=== PATIENT | female | born 1950 | race Caucasian/White ===

== ENCOUNTER → 2019-12-15 09:57 | Outpatient (BNVA) | payer MEDICARE, SELFPAY | PROVIDERS: PCP Internal Medicine; Referring Provider Internal Medicine; Visit Provider Physician Assistant | DX: Z01.818 Encounter for other preprocedural examination (principal); K21.9 Gastro-esophageal reflux disease without esophagitis | CPT/HCPCS: 99212 ==

== ENCOUNTER 2020-08-31 14:03 | Outpatient (REF) | payer MEDICARE, SELFPAY ==
--- NOTE | ~2020-08-31 | MM_ITS ---
EXAMINATION: BONE DENSITOMETRY CLINICAL INDICATION: Osteopenia. COMPARISON: Baseline BD dated 12/25/2017. TECHNIQUE: Using a 4-Tell DXA System (software version: 13.1) manufactured by [employer], dual-energy x-ray absorptiometry was performed of the lumbar spine and left hip. The images are of good technical quality. Summary results are attached. FINDINGS: AP SPINE L1-L4: Current: BMD 1.027 g/cm2, Z-score -0.4, T-score -1.3, osteopenia, 6.0% increase from baseline (<5% change is not significant). Baseline: BMD 0.969 g/cm2. LEFT FEMUR, NECK: Current: BMD 0.766 g/cm2, Z-score -0.8, T-score -2.0, osteopenia. Baseline: BMD 0.821 g/cm2. LEFT FEMUR, TOTAL: Current: BMD 0.823 g/cm2, Z-score -0.6, T-score -1.5, osteopenia, 4.4% increase from baseline (<5% change is not significant). Baseline: BMD 0.788 g/cm2. IDENTIFIED RISK FACTORS: Menopause, history of fracture (adult), osteoporosis, family history (parent hip fracture), secondary osteoporosis. HISTORY OF FRACTURE: Humerus/shoulder. MEDICATIONS: None listed. MM/XR DEXA axial skeleton IMPRESSION: 1. DIAGNOSIS: Osteopenia based on the lowest T-score value of -2.0 in the femoral neck applying World Health Organization criteria. 2. 10-YEAR FRACTURE RISK PREDICTION, FRAX: Major osteoporotic fracture (clinical spine, forearm, hip or shoulder) 27.3%. Hip fracture 7.0%. 3. Treatment Recommendations: NOF guidelines recommend consideration for treatment in postmenopausal women and men age 50 and older presenting with the following: -A hip or vertebral (clinical or morphometric) fracture. -T-score less than or equal to -2.5 at the femoral neck or spine after appropriate evaluation to exclude secondary causes. -Low bone mass at the hip or spine and a 10-year fracture probability by FRAX of greater than or equal to 3% for hip fracture or greater than or equal to 20% for major osteoporotic fracture based on the [place] adapted WHO algorithm. 4. Other Recommendations: All treatment decisions require clinical judgment and consideration of individual patient factors, including patient preferences, comorbidities, previous drug use, risk factors not captured in the FRAX model (e.g. frailty, falls, vitamin D deficiency, increased bone turnover, interval significant decline in bone density) and possible under or overestimation of fracture risk by FRAX. Additional medical evaluation for secondary cause of low bone mineral density may be appropriate. FUTURE SCAN RECOMMENDATION: People with diagnosed cases of osteoporosis or at high risk for fracture should have regular bone mineral density tests. For patients eligible for Medicare, routine testing is allowed once every 2 years. The testing frequency can be increased to one year for patients who have rapidly progressing disease, those who are receiving or discontinuing medical therapy to restore bone mass, or have additional risk factors.
== END 2020-08-31 14:04 | disposition home or self-care (01) ==
LOC: HO.MAMMO 14:03
PROVIDERS: PCP Internal Medicine; Visit Provider Internal Medicine
DX: M81.0 Age-related osteoporosis without current pathological fracture (principal); M85.80 Other specified disorders of bone density and structure, unspecified site; Z78.0 Asymptomatic menopausal state
CPT/HCPCS: 77080; 99212

== ENCOUNTER 2020-10-26 08:20 | Day surgery (SDC) | payer MEDICARE, SELFPAY ==
--- NOTE | 2020-10-17 | ECG_ITS ---
Test Reason : PREOP Blood Pressure : / mmHG Vent. Rate : 074 BPM Atrial Rate : 074 BPM P-R Int : 182 ms QRS Dur : 076 ms QT Int : 404 ms P-R-T Axes : 048 -42 047 degrees QTc Int : 448 ms Normal sinus rhythm Left axis deviation Inferior infarct , age undetermined Abnormal ECG No previous ECGs available Referred By: Martha Nugent Electronically Signed By:JAMIE RIVERA
[2020-10-17 13:12] VITALS: BP 118/72; PULSE 67; RESP 20; O2SAT 96; BMI 32.4
--- NOTE | 2020-10-17 13:21 | HO.ANESPROP2 ---
Documented by User: Martha Nugent NP 10/18/20 14:02 HPI - Anesthesia Eval Consult details Narrative: 70yo F for Upper Endoscopy and Colonoscopy PMF Active Problems Active Problems: All Active Problems (Updated 10/17/20 @ 13:12 by Mercedes Figueroa RN) Overweight (BMI 25.0-29.9) (Acute) Osteopenia (Acute) Finger fracture, left (Acute) Loose stools (Acute) Psoriasis (Acute) GERD (gastroesophageal reflux disease) (Acute) Obesity (BMI 30-39.9) (Acute) Coronary artery disease (Acute) Hypercholesterolemia (Acute) Past Medical History Medical History (Updated 10/17/20 @ 13:28 by Martha Nugent NP) Carotid artery dissection Celiac disease Claustrophobia Coronary artery disease COVID-19 vaccine series completed GERD (gastroesophageal reflux disease) Hypercholesterolemia Obesity (BMI 30-39.9) Osteoporosis Psoriasis Umbilical hernia Family History Family History Father Emphysema lung Mother Emphysema lung Surgical History Surgical History H/O colonoscopy H/O esophagogastroduodenoscopy H/O lateral meniscus repair of right knee History of ankle surgery History of cataract surgery History of section History of dental problems History of shoulder surgery History of surgery Hx of hernia repair Total knee replacement status History of Problems with Anesthesia: No Social History Social History (Updated 08/31/20 @ 10:07 by Ginger Velasco PA-C) Household Members: Spouse Household Members Other:: - Housing: House Alcohol intake: never Patient Tobacco Use Status: Former Tobacco user Quit Date: 1976 Tobacco use type: Cigarette Years Smoked: 1976 stopped e-Cigarette/Vaping Use: Never Used Use of substances other than those prescribed or required for medical reasons: No Have you been hit, kicked, punched, or otherwise hurt by someone within the past year? If so, by whom?: No Are you DNR?: No Advance Directives Information Provided: Yes (as above noted) Advance Directives on File: No Recently lost weight without trying: No Nutrition Risks: No Nutritional Risk Poor oral hygiene: No (has implants, caps) service: No Current occupational status: retired Narrative Narrative: No recent illness No CP/SOB with yard work Pain psoriasis on bottom of feet limits walking Meds Allergies Allergy/AdvReac Type Severity Reaction Status Date / Time cortisone Allergy Intermediate facial Verified 10/17/20 13:08 flushing/ confusion gluten Allergy Intermediate Gastrointestinal Verified 10/17/20 13:09 Upset Home Medications Medication Instructions Recorded Confirmed Last Taken Type acetaminophen 325 mg tablet 325 mg PO QID PRN 11/26/19 10/17/20 Unknown History (Tylenol) famotidine 10 mg tablet 10 mg PO BEDTIME 11/26/19 10/17/20 Unknown History multivitamin 1 tab PO DAILY 11/26/19 10/17/20 Unknown History betamethasone, augmented 0.05 % 1 appl TOPICAL DAILY 08/31/20 10/17/20 Unknown History topical ointment dupilumab 200 mg/1.14 mL 200 mg SUBCUT Q2W 08/31/20 10/17/20 Unknown History subcutaneous pen injector (Dupixent) Exam Exam Date and Time: October 17, 2020 1321 Height,Weight and Vital Signs: Height 5 ft 6 in Weight 91.172 kg Last Vital Signs Pulse 67 10/17/20 13:12 Resp 20 10/17/20 13:12 BP 118/72 10/17/20 13:12 Pulse Ox 96 10/17/20 13:12 Narrative Narrative: EKG 10/2020 Vent. Rate : 074 BPM ? ? Atrial Rate : 074 BPM ?? P-R Int : 182 ms? QRS Dur : 076 ms ? ? QT Int : 404 ms ? ? ? P-R-T Axes : 048 -42 047 degrees ?? QTc Int : 448 ms ? Normal sinus rhythm Left axis deviation Inferior infarct , age undetermined Abnormal ECG No previous ECGs available Airway Mallampati Class: II TM Dist: >3cm Neck ROM: Full Loose/Missing/Broken Teeth: No (Veneers throughout, crowned molars) Heart: RRR Lungs: CTAB Assessment and Plan Assessment Anesthesia Assessment: Anesthesia Plan Discussed and PAT Visit Final Anesthetic Review History of Problems with Anesthesia: No Documented by User: Samantha Ellis MD 10/26/20 08:12 [facility] Past Medical History Medical History (Updated 10/17/20 @ 13:28 by Martha Nugent NP) Carotid artery dissection Celiac disease Claustrophobia Coronary artery disease COVID-19 vaccine series completed GERD (gastroesophageal reflux disease) Hypercholesterolemia Obesity (BMI 30-39.9) Osteoporosis Psoriasis Umbilical hernia Functional capacity: independent ambulation Patient : No Family History Family History Father Emphysema lung Mother Emphysema lung Surgical History Surgical History H/O colonoscopy H/O esophagogastroduodenoscopy H/O lateral meniscus repair of right knee History of ankle surgery History of cataract surgery History of section History of dental problems History of shoulder surgery History of surgery Hx of hernia repair Total knee replacement status Social History Social History (Updated 08/31/20 @ 10:07 by Ginger Velasco PA-C) Household Members: Spouse Household Members Other:: - Housing: House Alcohol intake: never Patient Tobacco Use Status: Former Tobacco user Quit Date: 1976 Tobacco use type: Cigarette Years Smoked: 1976 stopped e-Cigarette/Vaping Use: Never Used Use of substances other than those prescribed or required for medical reasons: No Have you been hit, kicked, punched, or otherwise hurt by someone within the past year? If so, by whom?: No Are you DNR?: No Advance Directives Information Provided: Yes (as above noted) Advance Directives on File: No Recently lost weight without trying: No Nutrition Risks: No Nutritional Risk Poor oral hygiene: No (has implants, caps) service: No Current occupational status: retired Meds Allergies Allergy/AdvReac Type Severity Reaction Status Date / Time cortisone Allergy Intermediate facial Verified 10/17/20 13:08 flushing/ confusion gluten Allergy Intermediate Gastrointestinal Verified 10/17/20 13:09 Upset Home Medications Medication Instructions Recorded Confirmed Last Taken Type acetaminophen 325 mg tablet 325 mg PO QID PRN 11/26/19 10/17/20 Unknown History (Tylenol) famotidine 10 mg tablet 10 mg PO BEDTIME 11/26/19 10/17/20 Unknown History multivitamin 1 tab PO DAILY 11/26/19 10/17/20 Unknown History betamethasone, augmented 0.05 % 1 appl TOPICAL DAILY 08/31/20 10/17/20 Unknown History topical ointment dupilumab 200 mg/1.14 mL 200 mg SUBCUT Q2W 08/31/20 10/17/20 Unknown History subcutaneous pen injector (Numerex)
[2020-10-26 08:22] VITALS: BP 139/80; PULSE 87; RESP 16; TEMP 36.8; O2SAT 96
[2020-10-26] MEDS: Lactated Ringers 1,000 ML 100 ML IVCONT (08:52)
--- NOTE | 2020-10-26 09:08 | MHC.SHP ---
Pre-Procedural Eval Section A Date of Service: 10/26/20 Section B Chief Complaint: celiac,reflux Details of Present Illness: colon screening Relevant Family History (Specify if Yes): No Relevant Social History: None Present Medications: see Short Stay Collaborative assessment Medical History: Significant History (Carotid artery dissection Celiac disease Claustrophobia Coronary artery disease COVID-19 vaccine series completed GERD (gastroesophageal reflux disease) Hypercholesterolemia Obesity (BMI 30-39.9) Osteoporosis Psoriasis Umbilical hernia) History of Previous Operations: Relevant previous surgery/procedure and date(s) (H/O colonoscopy H/O esophagogastroduodenoscopy H/O lateral meniscus repair of right knee History of ankle surgery History of cataract surgery History of section History of dental problems History of shoulder surgery History of surgery Hx of hernia repair Total knee replacement status) Allergies: Allergies Allergy/AdvReac Type Severity Reaction Status Date / Time cortisone Allergy Intermediate facial Verified 10/17/20 13:08 flushing/ confusion gluten Allergy Intermediate Gastrointestinal Verified 10/17/20 13:09 Upset Review of Systems Sugical H&P ROS: Negative: Constitution, Cardiovascular, Respiratory, Neurological, Psychiatric, Hem-Onc, Allergic/Immunologic, Gastrointestinal, Genitourinary, Musculoskeletal, Integumentary, Endocrine and Eyes/Ears/Nose/Throat Exam Surgical H&P Exam: Normal: HEENT, Normal: Heart, Normal: Lungs, Normal: Extremities, Normal: Abdomen, Normal: Skin and Normal: Neurological Plan Diagnosis/Plan: Unchanged I have reviewed the history and physical and performed a pertinent physical examination on my patient. No changes have occurred unless specified.
--- NOTE | 2020-10-26 09:09 | PM.OP ---
Brief Operative Note Date of Service: 10/26/20 Pre-op diagnosis: GERD and colon screening Post-op diagnosis: same Procedure: see op note Surgeon: Justin Jaimes MD Anesthesia: MAC Was an Materials Scheduler used for this Procedure?: No Estimated blood loss (mL): 0 Condition: stable Disposition: PACU
--- NOTE | 2020-10-26 09:09 | W.PM.OPN ---
Operative Note Operative Note Date of Service: 10/26/20 Narrative: Operative Information Procedure Description: EGD, Colonoscopy FLEXIBLE TRANSORAL UPPER GASTROINTESTINAL ENDOSCOPY AND COLONOSCOPY PROCEDURE NOTE UPPER ENDOSCOPY Consent: Indications for the procedure and potential complications of bleeding, perforation, reaction to medications and missed diagnosis were discussed with the patient and informed consent was obtained. Instrument: Olympus GIF H 190 J mid size upper endoscope Monitoring: Vital signs and clinical assessment, continuous EKG monitoring, Pulse oximetry, Carbon Dioxide monitoring and blood pressure monitoring were done throughout the procedure. Procedure: The patient was placed in the left lateral decubitis position and pre-procedure medications were administered and a bite block was placed. The endoscope was inserted into the mouth and advanced under direct vision to the third part of duodenum. A careful inspection was made as the upper endoscope was withdrawn including a retroflexed examination of the proximal stomach; Findings and interventions are described below. Findings: Larynx:normal Esophagus: GE junction at 34 cm, diaphragm hiatus at 37 cm, consistent with 2-3 cm sliding hiatal hernia, mild esophagitis at GEJ bx taken from GEJ and random esophagus. In hernial sac one erosion noted. Stomach: Streaky erythema elidia at antrum. Biopsies were obtained. Grade 2 flap valve on retroflexed examination of the cardia. Duodenum: Normal bulb and descending duodenum, bx taken Intervention: Biopsies as noted above COLONOSCOPY Instrument: Olympus variable stiffness pediatric scope 190L Colonoscopy Monitoring: Vital signs and clinical assessment, continuous EKG monitoring, Pulse oximetry, Carbon Dioxide monitoring and blood pressure monitoring were done throughout the procedure. Colon withdrawal time was 10 minutes. Procedure: The patient was placed in the left lateral decubitis position and pre-procedure medications were administered. After a digital rectal examination of the ano-rectum, the video colonoscope was inserted into the rectum and advanced through the colon to the cecum/TI. The colonoscope was slowly withdrawn in a retrograde panoramic fashion and the colon mucosa was carefully examined including a retroflexed view of the rectum. Findings and interventions are described below. Procedure Difficulty:easy Findings: Terminal Ileum-normal Cecum:normal Ascending Colon: normal Transverse Colon -normal Descending Colon:10 mm sessile polyp removed with cold snare Sigmoid Colon: normal Rectum: Retroflexion with moderate sized internal hemorrhoids, grade I Anorectum - normal Colon preparation: [place] Bowel Preparation Scale Right colon; 3 Transverse colon: 3 Left colon; 3 (0 = Unprepared colon segment with mucosa not seen due to solid stool that cannot be cleared. 1 = Portion of mucosa of the colon segment seen, but other areas of the colon segment not well seen due to staining, residual stool and/or opaque liquid. 2 = Minor amount of residual staining, small fragments of stool and/or opaque liquid, but mucosa of colon segment seen well. 3 = Entire mucosa of colon segment seen well with no residual staining, small fragments of stool or opaque liquid) Impression and Post Procedure Diagnosis: Endoscopy Findings: hiatal hernia denis erosion esophagitis gastritis Colonoscopy Findings: polyp internal hemorrhoids Plan: Await Pathology results Repeat Colonoscopy in 5-7 years if adenomatous or 10 yr if hyperplastic or earlier if clinically indicated High fiber diet leaflet avoid straining at stool, epsom salts and sitz bath, anusol supps or cream Reflux precautions would benefit from PPI-will discuss with her Above findings were reviewed with the patient and relevant handouts were provided if indicated.
[2020-10-26 10:03] VITALS: BP 108/65; PULSE 69; RESP 16; TEMP 36.6; O2SAT 96
[2020-10-26 10:18] VITALS: BP 119/71; PULSE 66; RESP 16; TEMP 36.6; O2SAT 97
--- NOTE | 2020-10-26 16:50 | HO.POSTANES ---
Post Anesthesia Evaluation Post Anesthesia Evaluation Vital Signs: Vital Signs Temp Pulse Resp BP Pulse Ox 10/26/20 10:18 97.9 F 66 16 119/71 97 10/26/20 10:03 97.9 F 69 16 108/65 96 10/26/20 08:22 98.2 F 87 16 139/80 96 Anesthesia: Monitored Mental Status: Awake Pain Control: Satisfactory Nausea/Vomiting: None Hydration: Adequate Anesthesia-Related Issues: No Anes. Related Issues
== END 2020-10-26 11:01 ==
LOC: HO.SSS 08:20
PROVIDERS: PCP Internal Medicine; Visit Provider Internal Medicine Gastroenterology
PROC: (CPT 45385; principal; 2020-10-26 09:20)
DX: Z12.11 Encounter for screening for malignant neoplasm of colon (principal); D12.4 Benign neoplasm of descending colon; K64.0 First degree hemorrhoids; K90.0 Celiac disease; K29.50 Unspecified chronic gastritis without bleeding; K21.00 Gastro-esophageal reflux disease with esophagitis, without bleeding; R19.7 Diarrhea, unspecified; K25.9 Gastric ulcer, unspecified as acute or chronic, without hemorrhage or perforation; K44.9 Diaphragmatic hernia without obstruction or gangrene; M81.0 Age-related osteoporosis without current pathological fracture; I25.10 Atherosclerotic heart disease of native coronary artery without angina pectoris; I25.2 Old myocardial infarction; F40.240 Claustrophobia; Z79.899 Other long term (current) drug therapy; Z88.8 Allergy status to other drugs, medicaments and biological substances; Z87.891 Personal history of nicotine dependence
CPT/HCPCS: 45385; 43239; 88305; 88342; 93005

== ENCOUNTER 2020-10-30 08:52 | Outpatient (REF) | payer MEDICARE, SELFPAY ==
[2020-10-30 10:08] LABS: MANUAL DIFF FLAG NO
[2020-10-30 10:14] LABS: Basophils Percent Auto 0.9 % (0-2); Eosinophils Absolute Auto 0.2 X10*3/uL (0.0-0.4); Eosinophils Percent Auto 3.2 % (0-4); Hematocrit 42.4 % (37-47); Hemoglobin 13.8 g/dl (12.0-16.0); Imm Gran Abs Auto 0.01 X10*3/uL (0.00-0.03); Imm Gran Pct Auto 0.2 % (0.0-0.4); Lymphocytes Absolute Auto 1.7 X10*3/uL (1.2-4.9); Lymphocytes Percent Auto 36.8 % (20-40); Mean Corpuscular HGB Conc 32.5 g/dl (31.0-35.0); Mean Corpuscular Hemoglobin 28.5 pg (27.0-33.0); Mean Corpuscular Volume 87.4 fL (80-98); Mean Platelet Volume 11.4 fL (9.4-12.3); Monocytes Absolute Auto 0.3 X10*3/uL (0.1-1.2); Neutrophils Absolute Auto 2.5 X10*3/uL (2.0-8.3); Neutrophils Percent Auto 52.9 % (45-73); Platelet Count 199 X10*3/uL (160-400); Red Blood Count 4.85 X10*6/uL (4.20-5.50); Red Cell Distribution Width 13.7 % (11.0-16.0); White Blood Count 4.7 X10*3/uL (4.8-10.8)
[2020-10-30 10:17] LABS: Appearance Urine CLEAR; Color Urine YELLOW; Glucose Urine UA NEG (NEG); Leukocyte Esterase Urine NEG (NEG); Nitrite Urine NEG (NEG); PH 6.5 (5.0-8.0); Urine Blood NEG (NEG); Urine Ketones NEG (NEG); Urine Protein NEG (NEG-TRACE)
[2020-10-30 10:37] LABS: Alanine Aminotransferase 16 U/L (0-31); Alkaline Phosphatase 82 U/L (39-117); Anion Gap 12 (12-20); Aspartate Amino Transferase 14 U/L (5-31); Bilirubin Total 0.2 mg/dL (0.0-1.0); Blood Urea Nitrogen 10 mg/dL (9-16); Calcium 9.1 mg/dL (8.4-10.2); Carbon Dioxide 25 mmol/L (22-29); Chloride 109 mmol/L (96-108); Cholesterol 248 mg/dL; Estimated Glomerular Filt Rate > 60; Glucose Random 92 mg/dL (60-115); HDL Cholesterol 43 mg/dL; LDL Cholesterol Calculated 170 mg/dl; Potassium 4.7 mmol/L (3.3-5.1); Sodium 141 mmol/L (135-145); Total Protein 6.3 g/dL (6.5-8.0); Triglycerides 175 mg/dL
[2020-10-30 10:56] LABS: Bacteria Urine 1+ /LPF; RBC Urine 0 /HPF (0); Squamous Epithelial Cell Urine 2+ /LPF; WBC Urine 0-2 /HPF (0-4)
[2020-10-30 11:15] LABS: Erythrocyte Sedimentation Rate 7 MM/HR (0-20)
[2020-10-30 11:22] LABS: Thyroid Stimulating Hormone 1.23 uIU/mL (0.32-4.0)
[2020-10-30 11:46] LABS: Folate 13.9 ng/mL (> or = 4.0); Vitamin B12 720 pg/mL (200-900)
[2020-11-03 13:10] LABS: Vitamin D 25-OH, D2 <4 ng/mL; Vitamin D 25-OH, D3 29 ng/mL; Vitamin D 25-OH, Total 29 ng/mL (30-100)
[2020-11-04 10:47] LABS: Endomysial IgA Antibody Negative (Negative)
[2020-11-06 09:12] LABS: Transglutaminase IgA <1.0 U/mL
== END 2020-10-30 08:53 | disposition home or self-care (01) ==
LOC: HO.LAB 08:52
PROVIDERS: Absent Provider Physician Assistant; PCP Internal Medicine; Visit Provider Internal Medicine
DX: I25.10 Atherosclerotic heart disease of native coronary artery without angina pectoris (principal); R10.11 Right upper quadrant pain; R19.7 Diarrhea, unspecified; R19.5 Other fecal abnormalities; E78.00 Pure hypercholesterolemia, unspecified
CPT/HCPCS: 36415; 80053; 80061; 81001; 82306; 82607; 82746; 83516; 84443; 85025; 85652; 86255; 86256

== ENCOUNTER → 2020-12-11 09:14 | Outpatient (BNVA) | payer MEDICARE, SELFPAY | PROVIDERS: PCP Internal Medicine; Visit Provider Dietitian, Registered | DX: K90.0 Celiac disease (principal) | CPT/HCPCS: 97802 ==

== ENCOUNTER 2020-12-14 10:29 | Outpatient (REF) | payer MEDICARE, SELFPAY ==
--- NOTE | ~2020-12-14 | US_ITS ---
EXAMINATION: US EXTRACRANIAL CAROTID DUPLEX, BILATERAL CLINICAL INFORMATION: This is a 70-year-old female with coronary artery disease. Carotid artery dissection in 2010 which resolved. COMPARISON: None TECHNIQUE: Real-time ultrasound and Doppler techniques (integrating B-mode 2-D vascular images, Doppler spectral analysis and color-flow Doppler imaging) were utilized to interrogate the extracranial carotid arteries, the vertebral arteries and proximal subclavian arteries bilaterally. The degree of stenosis is determined by criteria similar to NASCET. FINDINGS: Right Side: 1. There is minimal atherosclerotic plaque seen in the bifurcation/proximal ICA region. 2. The common carotid artery PSV proximally is 106 cm/s and distally 53 cm/s. 3. The proximal internal carotid artery velocities are 45 cm/s systolic and 15 cm/s diastolic. 4. The proximal external carotid artery PSV is 76 cm/s. 5. The vertebral artery shows antegrade flow. 6. The subclavian artery waveforms are normal. Left Side: 1. There is minimal atherosclerotic plaque seen in the bifurcation/proximal ICA region. 2. The common carotid artery PSV proximally is 87 cm/s and distally 70 cm/s. 3. The proximal internal carotid artery velocities are 74 cm/s systolic and 16 cm/s diastolic. 4. The proximal external carotid artery PSV is 72 cm/s. 5. The vertebral artery shows antegrade flow. 6. The subclavian artery waveforms are normal. US/US carotid duplex BI IMPRESSION: 1. RIGHT: Minimal, non-hemodynamically significant stenosis of the proximal right internal carotid artery corresponding to a 0-49% stenosis by velocity criteria. 2. LEFT: Minimal, non-hemodynamically significant stenosis of the proximal left internal carotid artery corresponding to a 0-49% stenosis by velocity criteria. 3. An arrhythmia was noted during the Doppler portion of the examination. Further evaluation with EKG would be a better study at this time. 4. There are multiple nodules within the thyroid gland. This would be best evaluated with a dedicated thyroid ultrasound.
== END 2020-12-14 10:30 | disposition home or self-care (01) ==
LOC: HO.HMGCX 10:29
PROVIDERS: PCP Internal Medicine; Visit Provider Internal Medicine
DX: I77.71 Dissection of carotid artery (principal)
CPT/HCPCS: 93880

== ENCOUNTER 2020-12-18 | Outpatient (REF) | payer MEDICARE, SELFPAY ==
[2020-12-19 13:12] LABS: Influenza A PCR NEGATIVE (Negative); Influenza B PCR NEGATIVE (Negative); Resp Syncy Virus RNA Qual PCR NEGATIVE (Negative); SARS COV2 PCR INHOUSE NEGATIVE (Negative)
== END 2020-12-18 00:01 | disposition home or self-care (01) ==
LOC: HO.LNP
PROVIDERS: Visit Provider Physician Assistant Medical
DX: J06.9 Acute upper respiratory infection, unspecified (principal); R05.9 Cough, unspecified; Z20.822 Contact with and (suspected) exposure to COVID-19
CPT/HCPCS: 0241U

== ENCOUNTER 2020-12-18 15:31 | Outpatient (REF) | payer MEDICARE, SELFPAY ==
--- NOTE | ~2020-12-18 | XR_ITS ---
EXAMINATION: XR CHEST CLINICAL INFORMATION: Cough COMPARISON: Chest x-ray 10/07/2017 TECHNIQUE: 2 views of the chest were obtained. FINDINGS: Cardiac silhouette is normal in size. The lungs are adequately aerated. There is no lobar consolidation. No pleural effusion or pneumothorax. Mild degenerative changes of the spine. Partially visualized right shoulder prosthesis. XR/XR chest 2V IMPRESSION: No acute pulmonary pathology.
== END 2020-12-18 15:32 | disposition home or self-care (01) ==
LOC: HO.HMGCX 15:31
PROVIDERS: PCP Internal Medicine; Visit Provider Physician Assistant Medical
DX: R05.9 Cough, unspecified (principal); Z20.822 Contact with and (suspected) exposure to COVID-19
CPT/HCPCS: 0241U; 71046

== ENCOUNTER 2021-01-09 13:48 | Outpatient (REF) | payer MEDICARE, SELFPAY ==
--- NOTE | ~2021-01-09 | XR_ITS ---
EXAMINATION: XR LUMBAR SPINE XR SACRUM/COCCYX CLINICAL INFORMATION: Fall. COMPARISON: None TECHNIQUE: Lumbar spine 3 views. Sacrum and coccyx 3 views. FINDINGS: SACRUM/COCCYX: There is normal symmetry of SI joints. There is no fracture, dislocation, lytic or sclerotic process involving the sacrum. The presacral and posterior sacral soft tissues are normal. LUMBAR SPINE: There is normal lumbar lordosis. The vertebral heights, alignment and disc heights are normal. No visible acute fracture, dislocation or subluxation seen. XR/XR lumbar spine 2-3V IMPRESSION: Unremarkable sacrum and/or coccyx. Unremarkable lumbar spine exam.
--- NOTE | ~2021-01-09 | XR_ITS ---
EXAMINATION: XR LUMBAR SPINE XR SACRUM/COCCYX CLINICAL INFORMATION: Fall. COMPARISON: None TECHNIQUE: Lumbar spine 3 views. Sacrum and coccyx 3 views. FINDINGS: SACRUM/COCCYX: There is normal symmetry of SI joints. There is no fracture, dislocation, lytic or sclerotic process involving the sacrum. The presacral and posterior sacral soft tissues are normal. LUMBAR SPINE: There is normal lumbar lordosis. The vertebral heights, alignment and disc heights are normal. No visible acute fracture, dislocation or subluxation seen. XR/XR sacrum coccyx min 2V IMPRESSION: Unremarkable sacrum and/or coccyx. Unremarkable lumbar spine exam.
== END 2021-01-09 13:49 | disposition home or self-care (01) ==
LOC: HO.XRAY 13:48
PROVIDERS: PCP Internal Medicine; Visit Provider Internal Medicine
DX: M54.50 Low back pain, unspecified (principal); W19.XXXA Unspecified fall, initial encounter
CPT/HCPCS: 72100; 72220

== ENCOUNTER 2021-02-23 13:04 | Outpatient (REF) | payer MEDICARE, SELFPAY ==
--- NOTE | ~2021-02-23 | US_ITS ---
EXAMINATION: US THYROID CLINICAL INFORMATION: Nontoxic single thyroid nodule. COMPARISON: None TECHNIQUE: Linear transducer grayscale and color Doppler examination with attention to the region of the thyroid. FINDINGS: SIZE: Measurements of the thyroid lobes and nodules are given in sagittal, anteroposterior and transverse dimensions respectively. Right Thyroid Lobe: 4.6 x 2.0 x 1.2 cm, volume 6.0 mL. Parenchyma: The gland echotexture is heterogeneous. Thyroid vascularity is normal. Left Thyroid Lobe: 4.5 x 1.6 x 1.3 cm, volume 4.8 mL. Parenchyma: The gland echotexture is homogeneous. Thyroid vascularity is normal. Isthmus: 0.32 cm in maximum AP dimension. Estimated total number of nodules greater than or equal to 1 cm: 2. 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 Location: Right superior. Size: 1.3 x 1.0 x 0.7 cm, volume 0.46 mL. Nodule characteristics: Composition: Solid (2). Echogenicity: Hypoechoic (2). Shape: Not taller than wide (0). Margins: Smooth (0). Echogenic Foci: None (0). ACR TI-RADS total points: 4 ACR TI-RADS category: 4 2. Location: Right mid. Size: 1.2 x 0.9 x 0.6 cm, volume 0.35 mL. Nodule characteristics: Composition: Solid (2). Echogenicity: Hypoechoic (2). Shape: Not taller than wide (0). Margins: Smooth (0). Echogenic Foci: None (0). ACR TI-RADS total points: 4 ACR TI-RADS category: 4 3. Location: Right inferior. Size: 0.6 x 0.4 x 0.3 cm, volume 0.045 mL. Nodule characteristics: Composition: Solid (2). Echogenicity: Hypoechoic (2). Shape: Not taller than wide (0). Margins: Smooth (0). Echogenic Foci: None (0). ACR TI-RADS total points: 4 ACR TI-RADS category: 4 4. Location: Left mid. Size: 0.72 x 0.62 x 0.54 cm, volume 0.13 mL. Nodule characteristics: Composition: Solid/almost completely solid (2). Echogenicity: Hypoechoic (2). Shape: Not taller than wide (0). Margins: Smooth (0). Echogenic Foci: None (0). ACR TI-RADS total points: 4 ACR TI-RADS category: 4 5. Location: Left mid. Size: 0.6 x 0.5 x 0.5 cm, volume 0.08 mL. Nodule characteristics: Composition: Mixed cystic and solid (1). Echogenicity: Hypoechoic (2). Shape: Not taller than wide (0). Margins: Smooth (0). Echogenic Foci: None (0). ACR TI-RADS total points: 3 ACR TI-RADS category: 3 NODES: No lymphadenopathy is seen in the tissue surrounding the thyroid gland. US/US thyroid IMPRESSION: Heterogeneous thyroid gland with multiple thyroid nodules. According to TI RADS criteria, no ultrasound follow-up or fine-needle aspiration recommended. ACR TI-RADS RECOMMENDATION REFERENCE: Ultrasound-guided fine-needle aspiration, followup ultrasound, no further follow up. * TR1 (0 point) and TR 2 (2 points): No FNA or follow up * TR3 (3 points): FNA if more than or equal to 2.5 cm in maximum dimension, followup ultrasound in 1, 3 and 5 years if 1.5 to 2.4 cm in maximum dimension. * TR4 (4-6 points): FNA if more than or equal to 1.5 cm in maximum dimension, followup ultrasound in 1, 2, 3 and 5 years if 1 to 1.4 cm in maximum dimension. * TR5 (more than or equal to 7 points): FNA if more than or equal to 1 cm in maximum dimension, followup ultrasound every year for 5 years if 0.5 to 0.9 cm in maximum dimension. * TR3, TR4 or TR5 nodules that are below the size threshold for follow up receive no follow up.
== END 2021-02-23 13:05 | disposition home or self-care (01) ==
LOC: HO.HMGCX 13:04
PROVIDERS: PCP Internal Medicine; Visit Provider Internal Medicine
DX: E04.1 Nontoxic single thyroid nodule (principal)
CPT/HCPCS: 76536

== ENCOUNTER → 2021-03-26 08:08 | Outpatient (BNVA) | payer MEDICARE, SELFPAY | PROVIDERS: PCP Internal Medicine; Referring Provider Internal Medicine; Visit Provider Physician Assistant | DX: K90.0 Celiac disease (principal); K21.9 Gastro-esophageal reflux disease without esophagitis | CPT/HCPCS: 99212 ==

== ENCOUNTER → 2021-04-19 09:10 | Outpatient (BNVA) | payer MEDICARE, SELFPAY | PROVIDERS: PCP Internal Medicine; Visit Provider Dietitian, Registered | DX: K90.0 Celiac disease (principal); Z71.3 Dietary counseling and surveillance | CPT/HCPCS: 97803 ==

== ENCOUNTER 2021-05-10 10:16 | Outpatient (REF) | payer MEDICARE, SELFPAY ==
--- NOTE | 2021-05-10 10:49 | ECG_ITS ---
Test Reason : I25.10 ASCD Blood Pressure : / mmHG Vent. Rate : 063 BPM Atrial Rate : 063 BPM P-R Int : 170 ms QRS Dur : 080 ms QT Int : 440 ms P-R-T Axes : 044 -36 046 degrees QTc Int : 450 ms Normal sinus rhythm Left axis deviation Cannot rule out Inferior infarct (cited on or before 17-OCT-2020) Abnormal ECG When compared with ECG of 17-OCT-2020 13:53, No significant change was found Referred By: Ambreen Foster Electronically Signed By:ADELA WHITMORE
[2021-05-10 11:01] LABS: MANUAL DIFF FLAG NO
[2021-05-10 12:14] LABS: Basophils Percent Auto 0.7 % (0-2); Eosinophils Absolute Auto 0.2 X10*3/uL (0.0-0.4); Eosinophils Percent Auto 3.6 % (0-4); Hematocrit 42.8 % (37.0-47.0); Hemoglobin 13.7 g/dl (12.0-16.0); Imm Gran Abs Auto 0.01 X10*3/uL (0.00-0.03); Imm Gran Pct Auto 0.2 % (0.0-0.4); Lymphocytes Absolute Auto 1.9 X10*3/uL (1.2-4.9); Lymphocytes Percent Auto 34.8 % (20-40); Mean Corpuscular Volume 87.5 fL (80.0-98.0); Mean Platelet Volume 11.5 fL (9.4-12.3); Monocytes Absolute Auto 0.4 X10*3/uL (0.1-1.2); Monocytes Percent Auto 6.9 % (2-11); Neutrophils Percent Auto 53.8 % (45-73); Platelet Count 210 X10*3/uL (160-400); Red Blood Count 4.89 X10*6/uL (4.20-5.50); Red Cell Distribution Width 13.2 % (11.0-16.0); White Blood Count 5.5 X10*3/uL (4.8-10.8)
[2021-05-10 12:57] LABS: Alanine Aminotransferase 20 U/L (0-31); Alkaline Phosphatase 86 U/L (39-117); Anion Gap 9 (12-20); Aspartate Amino Transferase 17 U/L (5-31); Bilirubin Total 0.3 mg/dL (0.0-1.0); Blood Urea Nitrogen 12 mg/dL (9-16); Calcium 9.3 mg/dL (8.4-10.2); Carbon Dioxide 27 mmol/L (22-29); Chloride 109 mmol/L (96-108); Cholesterol 172 mg/dL; Estimated Glomerular Filt Rate > 60; Glucose Random 86 mg/dL (60-115); HDL Cholesterol 44 mg/dL; LDL Cholesterol Calculated 107 mg/dl; Potassium 4.6 mmol/L (3.3-5.1); Sodium 140 mmol/L (135-145); Total Protein 6.5 g/dL (6.5-8.0); Triglycerides 105 mg/dL
== END 2021-05-10 10:17 | disposition home or self-care (01) ==
LOC: HO.LAB 10:16
PROVIDERS: PCP Internal Medicine; Visit Provider Internal Medicine
DX: I25.10 Atherosclerotic heart disease of native coronary artery without angina pectoris (principal); E78.00 Pure hypercholesterolemia, unspecified
CPT/HCPCS: 36415; 80053; 80061; 85025; 93005

== ENCOUNTER 2021-07-02 08:07 | Outpatient (REF) | payer MEDICARE, SELFPAY ==
--- NOTE | ~2021-07-02 | FL_ITS ---
PROCEDURE: XR GI SERIES CLINICAL INFORMATION: Dysphagia. COMPARISON: None TECHNIQUE: Routine upper GI single contrast exam was performed. Double contrast upper GI exam was not performed as patient is unable to rotate on the table due to right shoulder prosthesis. FINDINGS: Following oral administration of thick barium and effervescent granules there is normal propagation if bolus from the oral cavity through the pharynx, esophagus into stomach without any evidence of obstruction and narrowing. On placing patient supine and prone the course, caliber and peristalsis of stomach and the duodenal bulb is normal. There is mild gastroesophageal reflux without hiatal hernia. FLUOROSCOPY TIME: 1.4 minutes DOSE AREA PRODUCT: 23.364 uGy-m2 (microgray-meter squared) FL/FL upper GI series IMPRESSION: Mild gastroesophageal reflux otherwise unremarkable upper GI single contrast study.
== END 2021-07-02 08:08 | disposition home or self-care (01) ==
LOC: HO.XRAY 08:07
PROVIDERS: Visit Provider Internal Medicine
DX: R13.10 Dysphagia, unspecified (principal)
CPT/HCPCS: 74240

== ENCOUNTER 2021-07-26 17:01 | Outpatient (REF) | payer MEDICARE, SELFPAY ==
--- NOTE | ~2021-07-26 | XR_ITS ---
EXAMINATION: XR RIBS, RIGHT CLINICAL INFORMATION: Pleurodynia COMPARISON: Chest x-ray 12/18/2020 TECHNIQUE: PA chest, 3 views of the right ribs were obtained. FINDINGS: Chest x-ray: Streaky bibasilar opacities, likely subsegmental atelectasis or scarring. No airspace consolidation. No pleural effusion or pneumothorax. Unchanged cardiomediastinal silhouette with tortuous descending thoracic aorta. No cardiomegaly or evidence pulmonary edema. Reverse right total shoulder arthroplasty noted. Right RIBS: Mild angular contour deformities of the right sixth and possibly fifth ribs compatible with prior healed fractures. No acute displaced fracture identified. XR/XR ribs RT min 3V w CXR1V IMPRESSION: 1. Mild bibasilar subsegmental atelectasis or scarring. No acute pulmonary process. 2. No acute displaced rib fracture identified.
== END 2021-07-26 17:02 | disposition home or self-care (01) ==
LOC: HO.HMGCX 17:01
PROVIDERS: PCP Internal Medicine
DX: R07.81 Pleurodynia (principal)
CPT/HCPCS: 71101

== ENCOUNTER 2021-08-31 10:46 | Outpatient (REF) | payer MEDICARE, SELFPAY ==
[2021-08-31 11:24] LABS: Alanine Aminotransferase 24 U/L (0-31); Albumin Level 4.3 g/dL (3.5-5.0); Alkaline Phosphatase 100 U/L (39-117); Anion Gap 12 (12-20); Aspartate Amino Transferase 22 U/L (5-31); Bilirubin Total 0.5 mg/dL (0.0-1.0); Blood Urea Nitrogen 12 mg/dL (9-16); Calcium 9.6 mg/dL (8.4-10.2); Carbon Dioxide 24 mmol/L (22-29); Chloride 106 mmol/L (96-108); Cholesterol 175 mg/dL; Estimated Glomerular Filt Rate > 60; Glucose Random 98 mg/dL (60-115); HDL Cholesterol 46 mg/dL; LDL Cholesterol Calculated 109 mg/dl; Potassium 4.4 mmol/L (3.3-5.1); Sodium 138 mmol/L (135-145); Total Protein 6.9 g/dL (6.5-8.0); Triglycerides 104 mg/dL
== END 2021-08-31 10:47 | disposition home or self-care (01) ==
LOC: HO.LAB 10:46
PROVIDERS: PCP Internal Medicine; Visit Provider Internal Medicine
DX: E78.00 Pure hypercholesterolemia, unspecified (principal); I25.10 Atherosclerotic heart disease of native coronary artery without angina pectoris
CPT/HCPCS: 36415; 80053; 80061

== ENCOUNTER 2022-03-27 11:17 | Outpatient (REF) | payer MEDICARE, SELFPAY ==
[2022-03-27 12:33] LABS: Alanine Aminotransferase 21 U/L (0-31); Albumin Level 4.2 g/dL (3.5-5.0); Alkaline Phosphatase 85 U/L (39-117); Anion Gap 12 (12-20); Aspartate Amino Transferase 19 U/L (5-31); Bilirubin Total 0.6 mg/dL (0.0-1.0); Blood Urea Nitrogen 12 mg/dL (9-16); Calcium 9.5 mg/dL (8.4-10.2); Carbon Dioxide 27 mmol/L (22-29); Chloride 108 mmol/L (96-108); Cholesterol 175 mg/dL; Estimated Glomerular Filt Rate > 60; Glucose Random 93 mg/dL (60-115); HDL Cholesterol 51 mg/dL; LDL Cholesterol Calculated 105 mg/dl; Potassium 4.7 mmol/L (3.3-5.1); Sodium 142 mmol/L (135-145); Total Protein 6.6 g/dL (6.5-8.0); Triglycerides 96 mg/dL
== END 2022-03-27 11:18 | disposition home or self-care (01) ==
LOC: HO.LAB 11:17
PROVIDERS: PCP Internal Medicine; Visit Provider Internal Medicine
DX: E78.00 Pure hypercholesterolemia, unspecified (principal)
CPT/HCPCS: 36415; 80053; 80061

== ENCOUNTER 2022-04-10 10:04 | Outpatient (REF) | payer MEDICARE, SELFPAY ==
--- NOTE | ~2022-04-10 | US_ITS ---
EXAMINATION: US THYROID CLINICAL INFORMATION: Localized swelling, mass and lump, neck. COMPARISON: Thyroid ultrasound 02/23/2021. TECHNIQUE: Linear transducer grayscale and color Doppler examination with attention to the region of the thyroid. FINDINGS: SIZE: Measurements of the thyroid lobes and nodules are given in sagittal, anteroposterior and transverse dimensions respectively. Right Thyroid Lobe: 4.9 x 2.2 x 1.1 cm, volume 6.1 mL. Previously 4.6 x 2.0 x 1.2 cm, volume 6.0 mL. Parenchyma: The gland echotexture is heterogeneous. Thyroid vascularity is normal. Left Thyroid Lobe: 4.6 x 1.9 x 1.3 cm, volume 5.9 mL. Previously 4.5 x 1.6 x 1.3 cm, volume 4.8 mL. Parenchyma: The gland echotexture is heterogeneous. Thyroid vascularity is normal. Isthmus: 0.3 cm in maximum AP dimension. Previously 0.3 cm. Estimated total number of nodules greater than or equal to 1 cm: 1. Composition Tile Layer nodules are described as follows: 1. Location: Right upper pole. Size: 1.1 x 0.8 x 1.1 cm, volume 0.47 mL. Previously: 1.3 x 1.0 x 0.7 cm, volume 0.46 mL. Nodule characteristics: Composition: Solid/almost completely solid (2). Echogenicity: Hypoechoic (2). Shape: Not taller than wide (0). Margins: Smooth (0). Echogenic Foci: Punctate echogenic foci (3). ACR TI-RADS total points: 7 Previous: 4 ACR TI-RADS category: 5 Previous: 4 Significant change in size (>/= 20% in 2 dimensions and minimal increase of 2 mm or 50% or greater increase in volume): None. Change in features: None. Change in ACR TI-RADS risk category: Increased. 2. Location: Right lower pole. Size: 0.9 x 0.7 x 0.8 cm, volume 0.29 mL. Previously: 1.2 x 0.9 x 0.6 cm, volume 0.35 mL. Nodule characteristics: Composition: Solid/almost completely solid (2). Echogenicity: Hypoechoic (2). Shape: Not taller than wide (0). Margins: Smooth (0). Echogenic Foci: Punctate echogenic foci (3). ACR TI-RADS total points: 7 Previous: 4 ACR TI-RADS category: 5 Previous: 4 Significant change in size (>/= 20% in 2 dimensions and minimal increase of 2 mm or 50% or greater increase in volume): None. Change in features: None. Change in ACR TI-RADS risk category: Slightly increased. 3. Location: Left mid pole. Size: 0.4 x 0.4 x 0.6 cm, volume 0.05 mL. Previously: 0.5 x 0.4 x 0.6 cm, volume 0.05 mL. Nodule characteristics: Composition: Spongiform (0). ACR TI-RADS total points: 0 ACR TI-RADS category: 1 4. Location: Left mid pole. Size: 0.7 x 0.6 x 0.6 cm, volume 0.14 mL. Previously: 0.7 x 0.6 x 0.5 cm, volume 0.13 mL. Nodule characteristics: Composition: Mixed cystic and solid (1). Echogenicity: Very hypoechoic (3). Shape: Taller than wide (3). Margins: Irregular (2). Echogenic Foci: None (0). None. ACR TI-RADS total points: 9 Previous: 4 ACR TI-RADS category: 5 Previous: 4 Significant change in size (>/= 20% in 2 dimensions and minimal increase of 2 mm or 50% or greater increase in volume): None. Change in features: None. Change in ACR TI-RADS risk category: Slightly increased. 5. Location: Left lower pole. Size: 0.6 x 0.6 x 0.5 cm, volume 0.10 mL. Previously: 0.6 x 0.5 x 0.5 cm, volume 0.08 mL. Nodule characteristics: Composition: Spongiform (0). ACR TI-RADS total points: 0 Previous: 3 ACR TI-RADS category: 1 Previous: 3 Significant change in size (>/= 20% in 2 dimensions and minimal increase of 2 mm or 50% or greater increase in volume): None. Change in features: None. Change in ACR TI-RADS risk category: Improved. NODES: No lymphadenopathy is seen in the tissue surrounding the thyroid gland. US/US thyroid IMPRESSION: Multiple bilateral thyroid nodules. The largest nodule measures 1.1 cm. At least 2 nodules have slightly increased total points and TI-RADS category but minimal. Recommend continued annual followup.
== END 2022-04-10 10:05 | disposition home or self-care (01) ==
LOC: HO.HMGCX 10:04
PROVIDERS: Visit Provider Internal Medicine
DX: R22.1 Localized swelling, mass and lump, neck (principal)
CPT/HCPCS: 76536

== ENCOUNTER 2022-09-16 09:31 | Outpatient (REF) | payer MEDICARE, SELFPAY ==
[2022-09-16 11:00] LABS: Alanine Aminotransferase 25 U/L (0-31); Alkaline Phosphatase 81 U/L (39-117); Anion Gap 14 (12-20); Aspartate Amino Transferase 21 U/L (5-31); Bilirubin Total 0.4 mg/dL (0.0-1.0); Blood Urea Nitrogen 11 mg/dL (9-16); Calcium 9.3 mg/dL (8.4-10.2); Carbon Dioxide 21 mmol/L (22-29); Chloride 109 mmol/L (96-108); Cholesterol 246 mg/dL; Estimated Glomerular Filt Rate > 60; Glucose Random 92 mg/dL (60-115); HDL Cholesterol 47 mg/dL; LDL Cholesterol Calculated 176 mg/dl; Potassium 4.3 mmol/L (3.3-5.1); Sodium 140 mmol/L (135-145); Total Protein 6.8 g/dL (6.5-8.0); Triglycerides 117 mg/dL
== END 2022-09-16 09:32 | disposition home or self-care (01) ==
LOC: HO.LAB 09:31
PROVIDERS: PCP Internal Medicine; Visit Provider Internal Medicine
DX: R22.1 Localized swelling, mass and lump, neck (principal); E78.00 Pure hypercholesterolemia, unspecified
CPT/HCPCS: 36415; 80053; 80061

== ENCOUNTER 2022-09-19 15:18 | Outpatient (AMB) | payer MEDICARE, SELFPAY ==
[2022-09-19 15:32] VITALS: BP 144/82; PULSE 86; O2SAT 97; BMI 34.4
--- NOTE | 2022-09-19 15:32 | A.OFFPC_ITS ---
Vital Signs 09/19/22 15:32 Height 5 ft 6 in Weight 213 lb BMI 34.4 BP 144/82 H Blood Pressure Location Lt brachial Position Sitting Pulse 86 Pulse Source Pulse Oximeter Pulse Oximetry (%) 97 Oxygen Delivery Method Room Air Intake Visit Reasons: Neck masshypercholesterolemia shoulder pain Allergies cortisone Allergy (Intermediate, Verified 09/19/22 15:33) facial flushing/ confusion gluten Allergy (Intermediate, Verified 09/19/22 15:33) Gastrointestinal Upset atorvastatin Adverse Reaction (Intermediate, Verified 09/19/22 15:33) muscle ache rosuvastatin Adverse Reaction (Intermediate, Unverified 09/19/22 16:11) myalgia Medication List - Last Reconciled 09/19/22 by Ambreen Foster MD acetaminophen (Tylenol) 325 mg PO QID PRN aspirin 81 mg PO DAILY 90 days betamethasone, augmented 0.05 % 1 appl topical DAILY cholecalciferol (vitamin D3) 25 mcg PO DAILY dupilumab (Dupixent) 200 mg subcut Q2W multivitamin 1 tab PO DAILY pantoprazole 40 mg PO DAILY rosuvastatin 5 mg PO DAILY Tobacco use date assessed: 04/01/22 Fall risk assessment: No Falls in past year Last assessed Fall Risk: 09/19/22 Dental Screening Dental Screen Date: 09/19/22 Did you have a dental visit in the last 12 months?: Yes Did you have a dental problem in the last 6 months where you did not have access to dental care?: No Was dental information given to patient?: Patient has dentist HPI Neck masshypercholesterolemia shoulder pain HPI Details 72-year-old obese female with GERD coronary artery disease hypercholesterolemia last seen in March 2022 neck mass ultrasound done and blood work was requested patient is here for follow-up. Mammogram is due bone density is due colonoscopy is up-to-date. Review of the notes in February 2022 had MRI of the left shoulder showing findings suggestive of small near full- thickness tear of the supraspinatus tendon without significant retraction, mild degenerative changes of the acromioclavicular and glenohumeral joints. Ultrasound of thyroid reveals multiple bilateral thyroid nodule with largest 1.1 cm at least 2 nodules have slightly increased. Advised annual follow-up. This was done in April 2019. L shoulder pain, wrist brace cannot use, - seen 2nd opinion- L shoulder- asking for referral , - R arm weak reasons L arm cannot be incapacitated. patient is presently in a study for balance issues.- with choelsterol med - had leg weakness- stopped cholesterol med- [facility] Medical History (Updated 09/19/22 @ 16:30 by Ambreen Foster MD) Breast cancer screening by mammogram Carotid artery dissection Celiac disease Claustrophobia Coronary artery disease COVID-19 vaccine series completed GERD (gastroesophageal reflux disease) Hypercholesterolemia Obesity (BMI 30-39.9) Osteoporosis Overweight (BMI 25.0-29.9) Psoriasis Umbilical hernia Surgical History H/O colonoscopy H/O esophagogastroduodenoscopy H/O lateral meniscus repair of right knee History of ankle surgery History of cataract surgery History of section History of dental problems History of shoulder surgery History of surgery Hx of hernia repair Total knee replacement status Family History (Updated 09/19/22 @ 15:33 by Violeta Min [facility]) Father Emphysema lung Mother Emphysema lung Social History Household Members: Spouse Household Members Other:: - Housing: House Alcohol intake: never Patient Tobacco Use Status: Former Tobacco user Quit Date: 1976 Tobacco use type: Cigarette Years Smoked: 1976 stopped e-Cigarette/Vaping Use: Never Used Second Hand Smoke Exposure: No service: No Current occupational status: retired Cognitive needs: No Hearing needs: No Vision needs: Yes (reading glasses) Questionnaire PHQ-9 Over the last 2 weeks, how often have you been bothered by any of the following problems? 1. Little interest or pleasure in doing things: not at all 2. Feeling down, depressed, or hopeless: not at all 3. Trouble falling or staying asleep, or sleeping too much: not at all 4. Feeling tired or having little energy: not at all 5. Poor appetite or overeating: not at all 6. Feeling bad about yourself - or that you are a failure or have let yourself or your family down: not at all 7. Trouble concentrating on things, such as reading the newspaper or watching television: not at all 8. Moving or speaking so slowly that other people could have noticed. Or the opposite - being so fidgety or restless that you have been moving around a lot more than usual: not at all 9. Thoughts that you would be better off or of hurting yourself in some way: not at all Total score: 0 Depression Screening Interpretation: Negative Source: Developed by Drs. Clayton Conde, Kat Grossman, Sanjay Grant and colleagues, with an educational raysa from [employer]. Thrive Questionnaire Date Thrive assessed: 04/01/22 AUDIT C Alcohol Use Questionnaire (AUDIT-C) 1. How often do you have a drink containing alcohol?: Monthly or less 2. How many drinks containing alcohol do you have on a typical day when you are drinking?: 1 or 2 3. How often do you have six or more drinks on one occasion?: Never Total Score: 1 FABIAN-7 AMB Questionnaire FABIAN-7 Date FABIAN - 7 assessed: 04/01/22 Source: Developed by Drs. Clayton Conde, Kat Grossman, Sanjay Grant and colleagues, with an educational raysa from [employer]. Physical exam (Primary Care) Vital Signs: Last Vital Signs Pulse 86 09/19/22 15:32 BP 144/82 H 09/19/22 15:32 Pulse Ox 97 09/19/22 15:32 Oxygen Delivery Method Room Air 09/19/22 15:32 BMI result Body Mass Index 34.4 Tobacco/Smoking Status: Tobacco use Status Tobacco use date assessed 04/01/22 09/19/22 15:34 Patient Tobacco Use Status Former Tobacco user 09/19/22 15:34 Tobacco use type Cigarette 09/19/22 15:34 e-Cigarette/Vaping Use Never Used 09/19/22 15:34 PHQ-9: PHQ-9 Score PHQ-9: Total score 0 09/19/22 15:39 Depression Screening Interpretation: Negative Thrive Assessment: Date of Thrive Assessment Date Thrive assessed 04/01/22 09/19/22 15:34 Const General: alert; No acute distress Eyes Conjunctivae: conjunctivae normal Resp Auscultation: clear to auscultation bilaterally Cardio Rate: regular rate Rhythm: regular rhythm GI Inspection: Yes normal to inspection Extrem General: Yes normal to inspection and No edema Assessment and Plan Assessment & Plan (1) Thyroid nodule: Comment: February Code(s): E04.1 - Nontoxic single thyroid nodule Plan: Ultrasound has been done and has been advised yearly follow-up family history of thyroid cancer will refer to Endocrinology (2) GERD (gastroesophageal reflux disease): Comment: Pantoprazole 40 mg daily may try to reduce dose in the future if symptoms are completely resolved. Reinforced importance of continuing medication and consistency to avoid breakthrough Avoid culprits-EGD Code(s): K21.9 - Gastro-esophageal reflux disease without esophagitis Qualifiers: Esophagitis presence: without esophagitis Qualified Code(s): K21.9 - Gastro-esophageal reflux disease without esophagitis Plan: Avoid the foods that causes that usually spicy foods, tomato products, juices, coffee, soda and foods that your sensitive to. After eating do not lie down, allow 3-4 hours before in lie down. And keep the head of bed above 30 degrees to avoid the acid from going up. (3) Obesity (BMI 30-39.9): Code(s): E66.9 - Obesity, unspecified Plan: Diet and exercise (4) Coronary artery disease: Comment: [place] 2000 - follows w PCP Dr. Foster Code(s): I25.10 - Atherosclerotic heart disease of [place] coronary artery without angina pectoris Qualifiers: Coronary Disease-Associated Artery/Lesion type: [place] artery [place] vs. transplanted heart: [place] heart Associated angina: without angina Qualified Code(s): I25.10 - Atherosclerotic heart disease of [place] coronary artery without angina pectoris Plan: Control the cholesterol, weight, blood pressure (5) Hypercholesterolemia: Code(s): E78.00 - Pure hypercholesterolemia, unspecified Plan: Avoid fried foods, chicken skin, eggs, butter margarine, pastries and meat. Be it pork or beef they have a lot of cholesterol LDL goal of less than 70 and the last blood work showing more than 176. Patient is not on any cholesterol med ication had a compromised with the patient to take rosuvastatin 5 mg once a day (6) Left shoulder pain: Comment: February 2022L shoulder MR 02/25/2022 Dr. Dash small near full-thickness tear of supraspinatus tendon without significant retraction mild degenerative changes of the acromioclavicular and glenohumeral joints Code(s): M25.512 - Pain in left shoulder Plan: Advised to get physical therapy done (7) Osteopenia: Code(s): M85.80 - Other specified disorders of bone density and structure, unspecified site Plan: Bone density requested (8) Breast cancer screening by mammogram: Code(s): Z12.31 - Encounter for screening mammogram for malignant neoplasm of breast Plan: Mammogram requested (9) Blood pressure elevated without history of HTN: Code(s): R03.0 - Elevated blood-pressure reading, without diagnosis of hypertension Plan: Blood pressure monitor requested and advised to check blood pressure 2 times a week and record Orders: Orders MM tomosynthesis screening BI Today Z12.31 - Encounter for screening mammogram for malignant neoplasm of breast XR DEXA axial skeleton Today M81.0 - Age-related osteoporosis without current pathological fracture, M85.80 - Other specified disorders of bone density and structure, unspecified site PT Evaluation and Treatment Today M25.512 - Pain in left shoulder Referrals Endocrinology Referral E04.1 - Nontoxic single thyroid nodule Medications: New rosuvastatin 5 mg PO DAILY 90 tabs 2RF E78.00 - Pure hypercholesterolemia, unspecified turmeric 400 mg PO .QD 30 caps 0RF E78.00 - Pure hypercholesterolemia, unspecified omega 0-vea-xgm-fish oil 100-160-1,000 mg (Fish Oil) 1 cap PO .QD 20 caps 0RF E78.00 - Pure hypercholesterolemia, unspecified blood pressure monitor (Blood Pressure Kit) As directed 1 ea 0RF I10 - Essential (primary) hypertension, R03.0 - Elevated blood-pressure reading, without diagnosis of hypertension Coding Level of Care Code Est Pt Level 4 (31524) Diagnoses Thyroid nodule E04.1 GERD (gastroesophageal reflux disease) K21.9 Esophagitis presence: without esophagitis Obesity (BMI 30-39.9) E66.9 Coronary artery disease I25.10 Coronary Disease-Associated Artery/Lesion type: [place] artery [place] vs. transplanted heart: [place] heart Associated angina: without angina Hypercholesterolemia E78.00 Left shoulder pain M25.512 Osteopenia M85.80 Breast cancer screening by mammogram Z12.31 Blood pressure elevated without history of HTN R03.0
== END 2022-09-19 16:36 | disposition home or self-care (01) ==
PROVIDERS: Visit Provider Internal Medicine
DX: E04.1 Nontoxic single thyroid nodule (principal); K21.9 Gastro-esophageal reflux disease without esophagitis; E66.9 Obesity, unspecified; Z68.34 Body mass index [BMI] 34.0-34.9, adult; I25.10 Atherosclerotic heart disease of native coronary artery without angina pectoris; E78.00 Pure hypercholesterolemia, unspecified; M25.512 Pain in left shoulder; M85.80 Other specified disorders of bone density and structure, unspecified site; Z12.31 Encounter for screening mammogram for malignant neoplasm of breast; R03.0 Elevated blood-pressure reading, without diagnosis of hypertension
CPT/HCPCS: 99214

== ENCOUNTER 2022-11-29 10:54 | Outpatient (AMB) | payer MEDICARE, SELFPAY ==
--- NOTE | 2022-11-29 12:38 | MHC.OFFWIV ---
Intake Vital Signs 11/29/22 12:39 Height 5 ft 6 in Weight 209 lb BMI 33.7 BP 122/80 Blood Pressure Location Lt brachial Position Sitting Pulse 80 Pulse Source Pulse Oximeter Temp 98.2 F Temp Source Temporal Artery Scan Pulse Oximetry (%) 95 Oxygen Delivery Method Room Air Intake Visit Reasons: EP Cough, Fever, Chills [phone] Intake Note: pt is here for c/o cough, chills Patient Tobacco Use Status: Former Tobacco user Quit Date: 1976 Allergies cortisone Allergy (Intermediate, Verified 11/29/22 13:05) facial flushing/ confusion gluten Allergy (Intermediate, Verified 11/29/22 13:05) Gastrointestinal Upset atorvastatin Adverse Reaction (Intermediate, Verified 11/29/22 13:05) muscle ache rosuvastatin Adverse Reaction (Intermediate, Unverified 11/29/22 13:05) myalgia Medication List - Last Reconciled 11/29/22 by Olu Lowery MD acetaminophen (Tylenol) 325 mg PO QID PRN aspirin 81 mg PO DAILY 90 days betamethasone, augmented 0.05 % 1 appl topical DAILY blood pressure monitor (Blood Pressure Kit) As directed cholecalciferol (vitamin D3) 25 mcg PO DAILY dupilumab (Dupixent) 200 mg subcut Q2W multivitamin 1 tab PO DAILY omega 2-mba-ege-fish oil 100-160-1,000 mg (Fish Oil) 1 cap PO .QD pantoprazole 40 mg PO DAILY rosuvastatin 5 mg PO DAILY turmeric 400 mg PO .QD Do you need a note to return to daycare/school/sports/work: No HPI EP Cough, Fever, Chills [phone] HPI Details 72-year-old female presents to the office for a sick visit. Patient is reporting symptoms of chills and rigors, sore throat. No family members sick. No recent travel. COUNTS INCLUDE 234 BEDS AT THE [facility] Medical History Breast cancer screening by mammogram Carotid artery dissection COVID-19 vaccine series completed Umbilical hernia GERD (gastroesophageal reflux disease) Overweight (BMI 25.0-29.9) Psoriasis Claustrophobia Osteoporosis Celiac disease Obesity (BMI 30-39.9) Coronary artery disease Hypercholesterolemia Surgical History Hx of hernia repair H/O esophagogastroduodenoscopy H/O colonoscopy History of dental problems History of cataract surgery History of section History of shoulder surgery H/O lateral meniscus repair of right knee Total knee replacement status History of surgery History of ankle surgery Family History Father Emphysema lung Mother Emphysema lung Social History Household Members: Spouse Household Members Other:: - Housing: House Alcohol intake: never Patient Tobacco Use Status: Former Tobacco user Quit Date: 1976 Tobacco use type: Cigarette Years Smoked: 1976 stopped e-Cigarette/Vaping Use: Never Used Second Hand Smoke Exposure: No service: No Current occupational status: retired Cognitive needs: No Hearing needs: No Vision needs: Yes (reading glasses) Physical Exam Vital Signs: Last Vital Signs Temp 98.2 F 11/29/22 12:39 Pulse 80 11/29/22 12:39 BP 122/80 11/29/22 12:39 Pulse Ox 95 11/29/22 12:39 Oxygen Delivery Method Room Air 11/29/22 12:39 BMI result Body Mass Index 33.7 Const General: cooperative and healthy appearing Nutritional Appearance: well nourished Orientation/consciousness: patient oriented x3 Limitations: no limitations HEENT Head: Yes normal to inspection Eyes General: appearance normal, both eyes and all related structures Neck Neck: Yes normal visual inspection Chest Chest palpation & inspection: normal palpation of entire chest wall Resp Effort & Inspection: normal respiratory effort Neuro General: patient oriented x3 Assessment & Plan Assessment & Plan (1) Upper respiratory tract infection: Code(s): J06.9 - Acute upper respiratory infection, unspecified Plan: Antibiotics ordered. Increase fluid intake. Tylenol for aches and pains. If symptoms worsen, follow-up here for a recheck. Coding Level of Care Code Est Pt Level 3 (36435) Diagnoses Upper respiratory tract infection J06.9
[2022-11-29 12:39] VITALS: BP 122/80; PULSE 80; TEMP 36.8; O2SAT 95; BMI 33.7
== END 2022-11-29 13:21 | disposition home or self-care (01) ==
PROVIDERS: PCP Internal Medicine; Visit Provider Internal Medicine
DX: J06.9 Acute upper respiratory infection, unspecified (principal)
CPT/HCPCS: 99213

== ENCOUNTER 2022-11-29 12:58 | Outpatient (REF) | payer MEDICARE, SELFPAY ==
[2022-11-29 17:27] LABS: Influenza A PCR NEGATIVE (Negative); Influenza B PCR NEGATIVE (Negative); Resp Syncy Virus RNA Qual PCR NEGATIVE (Negative); SARS COV2 PCR INHOUSE NEGATIVE (Negative)
== END 2022-11-29 12:59 | disposition home or self-care (01) ==
LOC: HO.LAB 12:58
PROVIDERS: Visit Provider Internal Medicine
DX: Z11.52 Encounter for screening for COVID-19 (principal); Z20.822 Contact with and (suspected) exposure to COVID-19; R05.9 Cough, unspecified
CPT/HCPCS: 0241U

== ENCOUNTER 2023-03-17 13:53 | Outpatient (AMB) | payer MEDICARE, SELFPAY ==
[2023-03-17 13:58] VITALS: BP 136/70; PULSE 85; O2SAT 97; BMI 33.9
--- NOTE | 2023-03-17 13:58 | A.OFFPC_ITS ---
Vital Signs 03/17/23 13:58 Height 5 ft 6 in Weight 210 lb BMI 33.9 BP 136/70 Blood Pressure Location Lt brachial Position Sitting Pulse 85 Pulse Source Pulse Oximeter Pulse Oximetry (%) 97 Oxygen Delivery Method Room Air Intake Visit Reasons: blood pressure Allergies cortisone Allergy (Intermediate, Verified 03/17/23 13:59) facial flushing/ confusion gluten Allergy (Intermediate, Verified 03/17/23 13:59) Gastrointestinal Upset atorvastatin Adverse Reaction (Intermediate, Verified 03/17/23 13:59) muscle ache rosuvastatin Adverse Reaction (Intermediate, Verified 03/17/23 13:59) myalgia Tobacco use date assessed: 03/17/23 Fall risk assessment: No Falls in past year Last assessed Fall Risk: 03/17/23 Dental Screening Dental Screen Date: 03/17/23 Did you have a dental visit in the last 12 months?: Yes Did you have a dental problem in the last 6 months where you did not have access to dental care?: No Was dental information given to patient?: Patient has dentist HPI blood pressure HPI Details 72-year-old obese female with a history of coronary artery disease hypercholesterolemia GERD coming in for follow-up. Last seen in September 2022. Concern about thyroid nodule and was advised to follow-up with endocrinology patient also had an elevated blood pressure at that time. As far as colonoscopy up-to-date October 2020 having tubular adenoma mammogram is up-to-date October 2022 and bone density test is up-to-date. L jaw pain- had covid. teeth pain not takn care until covid test negative. for the thyroid nodule [facility] Medical History Breast cancer screening by mammogram Carotid artery dissection COVID-19 vaccine series completed Umbilical hernia GERD (gastroesophageal reflux disease) Overweight (BMI 25.0-29.9) Psoriasis Claustrophobia Osteoporosis Celiac disease Obesity (BMI 30-39.9) Coronary artery disease Hypercholesterolemia Surgical History Hx of hernia repair H/O esophagogastroduodenoscopy H/O colonoscopy History of dental problems History of cataract surgery History of section History of shoulder surgery H/O lateral meniscus repair of right knee Total knee replacement status History of surgery History of ankle surgery Family History Father Emphysema lung Mother Emphysema lung Social History Household Members: Spouse Household Members Other:: - Housing: House Alcohol intake: never Patient Tobacco Use Status: Former Tobacco user Quit Date: 1976 Tobacco use type: Cigarette Years Smoked: 1976 stopped e-Cigarette/Vaping Use: Never Used Second Hand Smoke Exposure: No service: No Current occupational status: retired Cognitive needs: No Hearing needs: No Vision needs: Yes (reading glasses) Questionnaire PHQ-9 Over the last 2 weeks, how often have you been bothered by any of the following problems? 1. Little interest or pleasure in doing things: not at all 2. Feeling down, depressed, or hopeless: not at all 3. Trouble falling or staying asleep, or sleeping too much: not at all 4. Feeling tired or having little energy: not at all 5. Poor appetite or overeating: not at all 6. Feeling bad about yourself - or that you are a failure or have let yourself or your family down: not at all 7. Trouble concentrating on things, such as reading the newspaper or watching television: not at all 8. Moving or speaking so slowly that other people could have noticed. Or the opposite - being so fidgety or restless that you have been moving around a lot more than usual: not at all 9. Thoughts that you would be better off or of hurting yourself in some way: not at all Total score: 0 Depression Screening Interpretation: Negative Depression Screening Done: Yes Source: Developed by Drs. Clayton Conde, Kat Grossman, Sanjay Grant and colleagues, with an educational raysa from [employer]. Thrive Questionnaire Date Thrive assessed: 03/17/23 I am a: Patient What is your living situation today?: I have a steady place to live Within the past 12 months, did the food you bought not last and you didn't have the money to get more?: Never true Within the past 12 months, did you worry whether your food would run out before you got money to buy more?: Never true Do you have trouble paying for medicines?: No Do you have trouble getting transportation to medical appointments?: No Do you have trouble paying your heating and electricity bill?: No Do you have trouble taking care of your child, family member or friend?: No Do you have trouble with day-to-day activities such as bathing, preparing meals, shopping, managing finances, etc.?: No Are you currently unemployed and looking for a job?: No Are you interested in more education?: No Currently or been in a relationship where the following occur: no concerns reported THRIVE Score: 0 AUDIT C Alcohol Use Questionnaire (AUDIT-C) 1. How often do you have a drink containing alcohol?: Monthly or less 2. How many drinks containing alcohol do you have on a typical day when you are drinking?: 1 or 2 3. How often do you have six or more drinks on one occasion?: Never Total Score: 1 FABIAN-7 AMB Questionnaire FABIAN-7 Date FABIAN - 7 assessed: 03/17/23 Feeling nervous, anxious, or on edge: 0 = Not at all Not being able to stop or control worryin = Not at all Worrying too much about different things: 0 = Not at all Trouble relaxin = Not at all Being so restless that it is hard to sit still: 0 = Not at all Becoming easily annoyed or irritable: 0 = Not at all Feeling afraid as if something awful might happen: 0 = Not at all Total FABIAN-7 score (0-4 normal; 5-9 mild; 10-14 moderate; 15-21 severe): 0 Source: Developed by Drs. Clayton Conde, Kat Grossman, Sanjay Grant and colleagues, with an educational raysa from [employer]. Physical exam (Primary Care) Vital Signs: Last Vital Signs Pulse 85 03/17/23 13:58 BP 136/70 03/17/23 13:58 Pulse Ox 97 03/17/23 13:58 Oxygen Delivery Method Room Air 03/17/23 13:58 BMI result Body Mass Index 33.9 Tobacco/Smoking Status: Tobacco use Status Tobacco use date assessed 03/17/23 03/17/23 14:05 Patient Tobacco Use Status Former Tobacco user 03/17/23 14:05 Tobacco use type Cigarette 03/17/23 14:05 e-Cigarette/Vaping Use Never Used 03/17/23 14:05 PHQ-9: PHQ-9 Score PHQ-9: Total score 0 03/17/23 14:05 Depression Screening Interpretation: Negative Thrive Assessment: Date of Thrive Assessment Date Thrive assessed 03/17/23 03/17/23 14:05 Currently or been in a relationship where the following occur: no concerns reported Const General: alert; No acute distress Eyes Conjunctivae: conjunctivae normal Resp Auscultation: clear to auscultation bilaterally Cardio Rate: regular rate Rhythm: regular rhythm GI Inspection: Yes normal to inspection Extrem General: Yes normal to inspection and No edema Assessment and Plan Assessment & Plan (1) Coronary artery disease: Comment: [place] 2000 - follows w PCP Dr. Foster Code(s): I25.10 - Atherosclerotic heart disease of [place] coronary artery without angina pectoris Qualifiers: Coronary Disease-Associated Artery/Lesion type: [place] artery [place] vs. transplanted heart: [place] heart Associated angina: without angina Qualified Code(s): I25.10 - Atherosclerotic heart disease of [place] coronary artery without angina pectoris Plan: Control the cholesterol, weight, blood pressure, continue with taking aspirin 81 mg once a day (2) Hypercholesterolemia: Code(s): E78.00 - Pure hypercholesterolemia, unspecified Plan: Avoid fried foods, chicken skin, eggs, butter margarine, pastries and meat. Be it pork or beef they have a lot of cholesterol LDL goal of less than 70 and triglyceride of less than 150 patient presently on rosuvastatin 5 mg once a day (3) Obesity (BMI 30-39.9): Code(s): E66.9 - Obesity, unspecified Plan: Diet and exercise (4) GERD (gastroesophageal reflux disease): Comment: Pantoprazole 40 mg daily may try to reduce dose in the future if symptoms are completely resolved. Reinforced importance of continuing medication and consistency to avoid breakthrough Avoid culprits-EGD Code(s): K21.9 - Gastro-esophageal reflux disease without esophagitis Qualifiers: Esophagitis presence: without esophagitis Qualified Code(s): K21.9 - Gastro-esophageal reflux disease without esophagitis Plan: Avoid the foods that causes that usually spicy foods, tomato products, juices, coffee, soda and foods that your sensitive to. After eating do not lie down, allow 3-4 hours before in lie down. And keep the head of bed above 30 degrees to avoid the acid from going up. On pantoprazole (5) Thyroid nodule: Comment: February Code(s): E04.1 - Nontoxic single thyroid nodule Plan: Reminder about the thyroid nodule (6) Blood pressure elevated without history of HTN: Code(s): R03.0 - Elevated blood-pressure reading, without diagnosis of hypertension Plan: Blood pressure is controlled (7) Chronic left SI joint pain: Code(s): M53.3 - Sacrococcygeal disorders, not elsewhere classified; G89.29 - Other chronic pain (8) Numbness of left hand: Code(s): R20.0 - Anesthesia of skin Orders: Orders Complete Blood Count Auto Diff Today E78.00 - Pure hypercholesterolemia, unspecified Free T4 (Free Thyroxine) Today E78.00 - Pure hypercholesterolemia, unspecified Thyroid Stimulating Hormone Today E78.00 - Pure hypercholesterolemia, unspecified Lipid Panel Today E78.00 - Pure hypercholesterolemia, unspecified Comprehensive Met. Panel Today E78.00 - Pure hypercholesterolemia, unspecified Vitamin B12 and Folate Today E78.00 - Pure hypercholesterolemia, unspecified NE nerve conduction velocity Today R20.0 - Anesthesia of skin NE electromyogram (EMG) Today R20.0 - Anesthesia of skin US thyroid Today E04.1 - Nontoxic single thyroid nodule Referrals Endocrinology Referral E04.1 - Nontoxic single thyroid nodule Coding Level of Care Code Est Pt Level 4 (46063) Diagnoses Coronary artery disease involving [place] coronary artery of [place] heart without angina pectoris I25.10 Coronary Disease-Associated Artery/Lesion type: [place] artery [place] vs. transplanted heart: [place] heart Associated angina: without angina Hypercholesterolemia E78.00 Obesity (BMI 30-39.9) E66.9 Gastroesophageal reflux disease without esophagitis K21.9 Esophagitis presence: without esophagitis Thyroid nodule E04.1 Blood pressure elevated without history of HTN R03.0 Chronic left SI joint pain M53.3; G89.29 Numbness of left hand R20.0
== END 2023-03-17 15:44 | disposition home or self-care (01) ==
PROVIDERS: PCP Internal Medicine; Visit Provider Internal Medicine
DX: E78.00 Pure hypercholesterolemia, unspecified (principal); I25.10 Atherosclerotic heart disease of native coronary artery without angina pectoris; E66.9 Obesity, unspecified; Z68.33 Body mass index [BMI] 33.0-33.9, adult; K21.9 Gastro-esophageal reflux disease without esophagitis; E04.1 Nontoxic single thyroid nodule; R03.0 Elevated blood-pressure reading, without diagnosis of hypertension; M53.3 Sacrococcygeal disorders, not elsewhere classified; G89.29 Other chronic pain; R20.0 Anesthesia of skin
CPT/HCPCS: 99214

== ENCOUNTER 2023-04-09 09:03 | Outpatient (REF) | payer MEDICARE, SELFPAY ==
--- NOTE | ~2023-04-09 | US_ITS ---
EXAMINATION: US THYROID CLINICAL INFORMATION: Nontoxic single thyroid nodule. COMPARISON: Thyroid ultrasound 04/10/2022 and 02/23/2021. TECHNIQUE: Linear transducer grayscale and color Doppler examination with attention to the region of the thyroid. FINDINGS: SIZE: Measurements of the thyroid lobes and nodules are given in sagittal, anteroposterior and transverse dimensions respectively. Right Thyroid Lobe: 4.7 x 2.2 x 1.5 cm, volume 8.1 mL. Previously 4.9 x 2.2 x 1.1 cm, volume 6.1 mL. Parenchyma: The gland echotexture is heterogeneous. Thyroid vascularity is normal. Left Thyroid Lobe: 4.6 x 1.5 x 1.7 cm, volume 6.1 mL. Previously 4.6 x 1.9 x 1.3 cm, volume 5.9 mL. Parenchyma: The gland echotexture is heterogeneous. Thyroid vascularity is normal. Isthmus: 0.4 cm in maximum AP dimension. Previously 0.3 cm. Estimated total number of nodules greater than or equal to 1 cm: 1. 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 Location: Right upper/mid pole. Size: 1.6 x 0.8 x 1.0 cm, volume 0.7 mL. Previously: 1.1 x 0.8 x 1.1 cm, volume 0.5 mL. Nodule characteristics: Composition: Solid (2). Echogenicity: Isoechoic (1). Shape: Not taller than wide (0). Margins: Ill-defined (0). Echogenic Foci: Punctate echogenic foci (3). ACR TI-RADS total points: 6 Previous: 7 ACR TI-RADS category: 4 Previous: 5 Significant change in size (>/= 20% in 2 dimensions and minimal increase of 2 mm or 50% or greater increase in volume): No Change in features: Yes Change in ACR TI-RADS risk category: Yes 2. Location: Right lower pole/medial. Size: 0.9 x 0.7 x 0.7 cm, volume 0.2 mL. Previously: 0.9 x 0.7 x 0.8 cm, volume 0.3 mL. Nodule characteristics: Composition: Solid (2). Echogenicity: Hypoechoic (2). Shape: Not taller than wide (0). Margins: Smooth (0). Echogenic Foci: Macrocalcifications (1). ACR TI-RADS total points: 5 Previous: 7 ACR TI-RADS category: 4 Previous: 5 Significant change in size (>/= 20% in 2 dimensions and minimal increase of 2 mm or 50% or greater increase in volume): No Change in features: Yes Change in ACR TI-RADS risk category: Yes 3. Location: Left upper pole/lateral. Size: 0.7 x 0.5 x 0.6 cm, volume 0.1 mL. Previously: Not documented, new. Nodule characteristics: Composition: Mixed cystic and solid (1). Echogenicity: Isoechoic (1). Shape: Not taller than wide (0). Margins: Smooth (0). Echogenic Foci: None (0). ACR TI-RADS total points: 2 ACR TI-RADS category: 2 4. Location: Left mid pole. Size: 0.8 x 0.7 x 0.7 cm, volume 0.2 mL. Previously: 0.7 x 0.6 x 0.6 cm, volume 0.1 mL. Nodule characteristics: Composition: Mixed cystic and solid (1). Echogenicity: Very hypoechoic (3). Shape: Not taller than wide (0). Margins: Smooth (0). Echogenic Foci: Punctate echogenic foci (3). ACR TI-RADS total points: 7 Previous: 9 ACR TI-RADS category: 5 Previous: 5 Significant change in size (>/= 20% in 2 dimensions and minimal increase of 2 mm or 50% or greater increase in volume): Yes Change in features: No Change in ACR TI-RADS risk category: No 5. Location: Left lower pole. Size: 0.7 x 0.5 x 0.6 cm, volume 0.1 mL. Previously: 0.6 x 0.6 x 0.5 cm, volume 0.1 mL. Nodule characteristics: Composition: Spongiform (0). ACR TI-RADS total points: 0 Previous: 0 ACR TI-RADS category: 1 Previous: 1 Significant change in size (>/= 20% in 2 dimensions and minimal increase of 2 mm or 50% or greater increase in volume): No Change in features: No Change in ACR TI-RADS risk category: No NODES: No lymphadenopathy is seen in the tissue surrounding the thyroid gland. US/US thyroid IMPRESSION: 1. A 1.6 cm in maximal diameter increased right thyroid lobe TR 4 nodule meets ACR biopsy criteria and is amenable to ultrasound-guided biopsy, if clinically indicated and not already performed. 2. There is heterogeneous thyroid echotexture, which can be associated with thyroiditis. ACR TI-RADS RECOMMENDATION REFERENCE: Ultrasound-guided fine-needle aspiration, follow up ultrasound, no further followup. * TR1 (0 point) and TR2 (2 points): No FNA or followup * TR3 (3 points): FNA if more than or equal to 2.5 cm in maximum dimension, follow up ultrasound in 1, 3 and 5 years if 1.5 to 2.4 cm in maximum dimension. * TR4 (4-6 points): FNA if more than or equal to 1.5 cm in maximum dimension, follow up ultrasound in 1, 2, 3 and 5 years if 1 to 1.4 cm in maximum dimension. * TR5 (more than or equal to 7 points): FNA if more than or equal to 1 cm in maximum dimension, follow up ultrasound every year for 5 years if 0.5 to 0.9 cm in maximum dimension. * TR3, TR4 or TR5 nodules that are below the size threshold for follow up receive no followup.
== END 2023-04-09 09:04 | disposition home or self-care (01) ==
LOC: HO.HMGCX 09:03
PROVIDERS: PCP Internal Medicine; Visit Provider Internal Medicine
DX: E04.1 Nontoxic single thyroid nodule (principal)
CPT/HCPCS: 76536

== ENCOUNTER 2023-04-18 10:01 | Outpatient (REF) | payer MEDICARE, SELFPAY ==
--- NOTE | 2023-04-18 10:05 | EMG_ITS ---
Chief complaint: Left hand pain and numbness Reason for referral: Evaluate for Carpal Tunnel Syndrome Referred by: Left upper extremity NCS/EMG Procedure done: Dr. Foster Precautions and/or limitations: None The limb temperature was monitored continuously and remained between 32-36 degrees C during the performance of the NCS. Nerve Conduction Studies Anti Sensory Summary Table ?Stim Site NR Onset (ms) Norm Onset (ms) Peak (ms) Norm Peak (ms) O-P Amp (?V) Norm O-P Amp Site1 Site2 Delta-0 (ms) Dist (cm) Delfino (m/s) Norm Delfino (m/s) Left Median Anti Sensory (2nd Digit) Wrist ? 2.3 3.2 <3.6 27.2 >10 Wrist 2nd Digit 2.3 14.0 61 Left Ulnar Anti Sensory (5th Digit) Wrist ? 2.5 3.2 <3.7 16.8 >15.0 Wrist 5th Digit 2.5 14.0 56 Motor Summary Table ?Stim Site NR Onset (ms) Norm Onset (ms) O-P Amp (mV) Norm O-P Amp iAmp (mV) Amp (1st) (%) Site1 Site2 Delta-0 (ms) Dist (cm) Delfino (m/s) Norm Delfino (m/s) Left Median Motor (Abd Poll Brev) Wrist ? 3.4 <3.9 7.1 >4.5 8.9 100.0 Elbow Wrist 3.6 21.0 58 >45 Elbow ? 7.0 5.9 7.3 83.1 Left Ulnar Motor (Abd Dig Minimi) Wrist ? 2.9 <3.0 6.2 >5 8.0 100.0 B Elbow Wrist 3.2 18.0 56 >45 B Elbow ? 6.1 5.1 6.8 82.3 A Elbow B Elbow 1.6 10.0 62 >45 A Elbow ? 7.7 5.0 6.8 80.6 Comparison Summary Table ?Stim Site NR Peak (ms) Norm Peak (ms) P-T Amp (?V) Site1 Site2 Delta-P (ms) Norm Delta (ms) Left Median/Radial Dig I Comparison (Digit 1 - 10cm) Median ? 2.7 <2.9 64.0 Median Radial 0.4 Radial ? 2.3 <2.8 48.9 EMG ?Side Muscle Nerve Root Ins Act Fibs Psw Amp Dur Poly Recrt Int Pat Comment Left 1stDorInt Ulnar C8-T1 Nml Nml Nml Nml Nml 0 Nml Complete Left FlexCarRad Median C6-7 Nml Nml Nml Nml Nml 0 Nml Complete Left Biceps Musculocut C5-6 Nml Nml Nml Nml Nml 0 Nml Complete Left Triceps Radial C6-7-8 Nml Nml Nml Nml Nml 0 Nml Complete Left Deltoid Axillary C5-6 Nml Nml Nml Nml Nml 0 Nml Complete FINDINGS: All motor and sensory nerves tested showed normal latencies, amplitudes and conduction velocities. Concentric needle EMG was performed in selected muscles of the left upper extremity. Study did not reveal signs of electric abnormalities as shown in the table below. IMPRESSION: 1. This is a normal study. 2. There is no electrodiagnostic evidence for median neuropathy, ulnar neuropathy, brachial plexopathy, or cervical radiculopathy. Thank you for your kind referral. Padmini Frank MD, RICHELLE Board Certified, [place] Board [employer] Physical Medicine and Rehabilitation (ABPMR) Board Certified, [place] Board of Electrodiagnostic Medicine (ABEM) CODIN [id number] MTDD
== END 2023-04-18 10:02 | disposition home or self-care (01) ==
LOC: HO.NEURO 10:01
PROVIDERS: PCP Internal Medicine; Visit Provider Internal Medicine
DX: R20.0 Anesthesia of skin (principal)
CPT/HCPCS: 95886; 95909

== ENCOUNTER → 2023-04-18 10:05 | Outpatient (BNV) | payer MEDICARE, SELFPAY | PROVIDERS: PCP Internal Medicine; Visit Provider Physical Medicine & Rehabilitation | DX: M79.642 Pain in left hand (principal); R20.0 Anesthesia of skin | CPT/HCPCS: 95886; 95909 ==

== ENCOUNTER 2024-06-15 07:27 | Outpatient (REF) | payer MEDICARE, SELFPAY ==
--- OUTSIDE RECORDS SUMMARY | 2024-06-15 07:31 | XMS_ITS ---
[facility] Name [facility] Organization Unknown Encounters Encounter Type Encounter Reason Primary Diagnosis Location Date Ambulatory [facility] [place] 12/24/2023 Care Team Organization Name Specialty Phone Email Start Date End Da te [facility] [place] MARIELA BRAGG Primary Care 01/10/2022 024
--- OUTSIDE RECORDS SUMMARY | 2024-06-15 07:31 | XMS_ITS | Clinical Summary ---
Author Organization [facility] Address [address] [place] [address] Care Team Providers Care Inspector Crystal Name Role Phone Ambreen Foster MD Primary Care Provider [phone] Allergies Active Allergy Reactions Criticality Noted Date Comments Codeine Nausea Only High 12/13/2013 Cortisone Other (See Comments),Nausea Only High 04/2013 Medications Medication Sig Dispensed Refills Start Date End Date Status Dupilumab (Dupixent) 300 MG/2ML SOSY Inject 300 mg under the skin. 0 03/06/2021 Active pantoprazole (PROTONIX) 40 MG tablet 0 01/01/2022 Active traMADol (ULTRAM) 50 MG tablet TRAMADOL 50 MG TABLET; Dose: Not available; Form: Take 1-2 TABLET; Route: PO; Frequency: Q6H PRN pain; Directions: Not available; Details: Dispense: 100 Tablet(s); Status: Active; Source: [facility]ERWIN KEYPCrescencioACrescencio-CCrescencio; Date: 04/21/2014 0 04/21/2014 Active LORazepam (Ativan) 1 MG tablet Take 1 tab two hours before your MRI; Take 2nd tab thirty minutes before your MRI 2 tablet 0 02/19/2022 Active aspirin 81 MG EC tablet Take 1 tablet (81 mg total) by mouth. 0 Active ascorbic acid (VITAMIN C) 250 MG CHEW Chew by mouth. 0 Active Bacillus Coagulans-Inulin (Probiotic) 1-250 BILLION-MG CAPS Take 250 mg by mouth. 0 Active rosuvastatin (CRESTOR) tablet 10 mg 0 02/19/2022 Active Active Problems No known active problems Family History Medical History Relation Name Comments Hypertension Brother Arthritis Mother Cancer Sister Relation Name Status Comments Brother Mother Sister Social History Tobacco Use Types Packs/Day Years Used Date Smoking Tobacco: Never Smokeless Tobacco: Never Tobacco Cessation:Counseling Given: Not Answered Alcohol Use Standard Drinks/Week Comments Not Currently 0 (1 standard drink = 0.6 oz pur e alcohol) Sex and Gender Information Value Date Recorded Sex Assigned at Female 12/31/2021 11:28 AM EST Gender Identity Female 12/31/2021 11:28 AM EST Sexual Orientation Not on file Job Start Date Occupation Industry Not on file Not on file Not on file Last Filed Vital Signs Vital Sign Reading Time Taken Comments Blood Pressure - - Pulse - - Temperature - - Respiratory Rate - - Oxygen Saturation - - Inhaled Oxygen Concentration - - Weight 93 kg (205 lb) 12/28/2021 2:29 PM EST Height 170.2 cm (5' 7 ) 12/28/2021 2:29 PM EST Body Mass Index 32.11 12/28/2021 2:29 PM EST Plan of Treatment Health Maintenance Due Date Last Done Comments Hepatitis C Screening 1950 COVID-19 Vaccine (#1) 1950 Depression Screening 1962 BMI Counseling 1968 Preventative Health Evaluation 1968 DTap / Tdap / Td (1 - Tdap) 1969 Colon Cancer Screening (Colonoscopy) 05/30/1995 Breast Cancer Screening (Mammogram) 2000 Shingrix-Zoster Vaccine (1 of 2) 2000 Fall Risk Assessment 05/30/2015 Osteoporosis Screening (DEXA Scan) 05/30/2015 Pneumococcal Vaccine (1 of 1 - PCV) 05/30/2015 Influenza Vaccine (#1) 2023 RSV Adult > 60+ Yrs or Pregn ant (1 - 1-dose 75+ series) 2025 Hepatitis B Vaccines Aged Out No long er eligible based on patient's age to complete this topic RSV Ped < 20 months Aged Out No longe r eligible based on patient's age to complete this topic Care Teams Inspector Crystal Relationship Specialty Start Date End Date Po, Ambreen Sheikh MD [address] [place] [address] [address] [facility] [place] [id number] PCP - General Internal Medicine 12/31/21
[2024-06-15 07:37] LABS: MANUAL DIFF FLAG NO
[2024-06-15 08:41] LABS: Basophils Absolute Auto 0.1 X10*3/uL (0.0-0.2); Basophils Percent Auto 0.9 % (0-2); Eosinophils Absolute Auto 0.2 X10*3/uL (0.0-0.4); Eosinophils Percent Auto 3.1 % (0-4); Hematocrit 41.4 % (37.0-47.0); Hemoglobin 13.6 g/dl (12.0-16.0); Imm Gran Abs Auto 0.01 X10*3/uL (0.00-0.03); Imm Gran Pct Auto 0.2 % (0.0-0.4); Mean Corpuscular HGB Conc 32.9 g/dl (31.0-35.0); Mean Corpuscular Hemoglobin 28.3 pg (27.0-33.0); Mean Corpuscular Volume 86.3 fL (80.0-98.0); Monocytes Absolute Auto 0.4 X10*3/uL (0.1-1.2); Monocytes Percent Auto 7.2 % (2-11); Neutrophils Absolute Auto 2.9 x10*3/uL (2.0-8.3); Neutrophils Percent Auto 52.6 % (45-73); Platelet Count 208 X10*3/uL (160-400); Red Cell Distribution Width 13.8 % (11.0-16.0); White Blood Count 5.6 X10*3/uL (4.8-10.8)
[2024-06-15 08:55] LABS: Appearance Urine Clear; Color Urine Yellow; Glucose Urine UA Negative (Negative); Leukocyte Esterase Urine Negative (Negative); Nitrite Urine Negative (Negative); Urine Blood Negative (Negative); Urine Ketones Negative (Negative); Urine Protein Negative (Neg-Trace)
[2024-06-15 09:17] LABS: Alanine Aminotransferase 21 U/L (0-31); Alkaline Phosphatase 86 U/L (39-117); Anion Gap 11 (12-20); Aspartate Amino Transferase 22 U/L (5-31); Bilirubin Total 0.2 mg/dL (0.0-1.0); Blood Urea Nitrogen 19 mg/dL (9-16); Calcium 9.2 mg/dL (8.4-10.2); Carbon Dioxide 23 mmol/L (22-29); Chloride 112 mmol/L (96-108); Cholesterol 242 mg/dL (<200); Estimated Glomerular Filt Rate > 60; Glucose Random 100 mg/dL (60-115); Potassium 4.6 mmol/L (3.3-5.1); Sodium 141 mmol/L (135-145); Total Protein 6.5 g/dL (6.5-8.0); Triglycerides 168 mg/dL (<150)
[2024-06-15 09:48] LABS: Folate 14.6 ng/mL (> or = 4.0); Vitamin B12 650 pg/mL (200-900)
[2024-06-15 10:01] LABS: Free T4 (Free Thyroxine) 0.84 ng/dL (0.71-1.85); HDL Cholesterol 48 mg/dL (>40); LDL Cholesterol Calculated 161 mg/dL (<100); Vitamin D 25-OH Total 34.4 ng/mL (>30)
== END 2024-06-15 07:28 | disposition home or self-care (01) ==
LOC: HO.LAB 07:27
PROVIDERS: PCP Internal Medicine; Visit Provider Internal Medicine
DX: Z00.00 Encounter for general adult medical examination without abnormal findings (principal); I25.10 Atherosclerotic heart disease of native coronary artery without angina pectoris; E78.00 Pure hypercholesterolemia, unspecified; E66.9 Obesity, unspecified; K21.9 Gastro-esophageal reflux disease without esophagitis; L40.9 Psoriasis, unspecified; M85.80 Other specified disorders of bone density and structure, unspecified site; K90.0 Celiac disease; E04.1 Nontoxic single thyroid nodule; R03.0 Elevated blood-pressure reading, without diagnosis of hypertension; R73.01 Impaired fasting glucose; R30.0 Dysuria; Z79.899 Other long term (current) drug therapy
CPT/HCPCS: 36415; 80053; 80061; 81003; 82306; 82607; 82746; 84439; 84443; 85025; 96127; 99397

== ENCOUNTER 2024-06-15 11:22 | Outpatient (AMB) | payer MEDICARE, SELFPAY ==
--- NOTE | 2024-06-15 11:24 | MHC.PC.OV ---
Vital Signs 06/15/24 11:25 Height 5 ft 6 in Weight 210 lb BMI 33.9 BP 134/92 H Blood Pressure Location Lt brachial Position Sitting Pulse 86 Pulse Source Pulse Oximeter Pulse Oximetry (%) 98 Oxygen Delivery Method Room Air Intake Visit Reasons: Annual PE Allergies cortisone Allergy (Intermediate, Verified 06/15/24 11:26) facial flushing/ confusion gluten Allergy (Intermediate, Verified 06/15/24 11:26) Gastrointestinal Upset atorvastatin Adverse Reaction (Intermediate, Verified 06/15/24 11:26) muscle ache rosuvastatin Adverse Reaction (Intermediate, Verified 06/15/24 11:26) myalgia Medication List - Last Reconciled 06/15/24 by Ambreen Foster MD acetaminophen (Tylenol) 325 mg PO QID PRN apple cider vinegar mg PO aspirin 81 mg PO DAILY betamethasone, augmented 0.05 % 1 appl topical DAILY blood pressure monitor (Blood Pressure Kit) As directed blood pressure monitor (Blood Pressure Kit) As directed dupilumab (Dupixent) 200 mg subcut Q2W famotidine (Pepcid) 20 mg PO BEDTIME multivitamin 1 tab PO DAILY rosuvastatin 5 mg PO DAILY Tobacco use date assessed: 06/15/24 Fall risk assessment: No Falls in past year Last assessed Fall Risk: 06/15/24 Dental Screening Dental Screen Date: 06/15/24 Did you have a dental visit in the last 12 months?: Yes Did you have a dental problem in the last 6 months where you did not have access to dental care?: No Was dental information given to patient?: Patient has dentist [facility] Medical History Breast cancer screening by mammogram Carotid artery dissection COVID-19 vaccine series completed Umbilical hernia GERD (gastroesophageal reflux disease) Overweight (BMI 25.0-29.9) Psoriasis Claustrophobia Osteoporosis Celiac disease Obesity (BMI 30-39.9) Coronary artery disease Hypercholesterolemia Surgical History Hx of hernia repair H/O esophagogastroduodenoscopy H/O colonoscopy History of dental problems History of cataract surgery History of section History of shoulder surgery H/O lateral meniscus repair of right knee Total knee replacement status History of surgery History of ankle surgery Family History Father Emphysema lung Mother Emphysema lung Social History Household Members: Spouse Household Members Other:: - Housing: House Alcohol intake: never Patient Tobacco Use Status: Former Tobacco user Tobacco use type: Cigarette Years Smoked: 1976 stopped e-Cigarette/Vaping Use: Never Used Second Hand Smoke Exposure: No service: No Current occupational status: retired Cognitive needs: No Hearing needs: No Vision needs: Yes (reading glasses) Questionnaire PHQ-9 Over the last 2 weeks, how often have you been bothered by any of the following problems? 1. Little interest or pleasure in doing things: not at all 2. Feeling down, depressed, or hopeless: not at all 3. Trouble falling or staying asleep, or sleeping too much: not at all 4. Feeling tired or having little energy: not at all 5. Poor appetite or overeating: not at all 6. Feeling bad about yourself - or that you are a failure or have let yourself or your family down: not at all 7. Trouble concentrating on things, such as reading the newspaper or watching television: not at all 8. Moving or speaking so slowly that other people could have noticed. Or the opposite - being so fidgety or restless that you have been moving around a lot more than usual: not at all 9. Thoughts that you would be better off or of hurting yourself in some way: not at all Total score: 0 Depression Screening Interpretation: Negative Depression Screening Done: Yes Source: Developed by Drs. Clayton Conde, Kat Grossman, Sanjay Grant and colleagues, with an educational raysa from [employer]. Thrive Questionnaire Date Thrive assessed: 06/15/24 I am a: Patient What is your living situation today?: I have a steady place to live Within the past 12 months, did the food you bought not last and you didn't have the money to get more?: Never true Within the past 12 months, did you worry whether your food would run out before you got money to buy more?: Never true Do you have trouble paying for medicines?: No Do you have trouble getting transportation to medical appointments?: No Do you have trouble paying your heating and electricity bill?: No Do you have trouble taking care of your child, family member or friend?: No Do you have trouble with day-to-day activities such as bathing, preparing meals, shopping, managing finances, etc.?: No Are you currently unemployed and looking for a job?: No Are you interested in more education?: No Currently or been in a relationship where the following occur: No concerns reported THRIVE Score: 0 AUDIT C Alcohol Use Questionnaire (AUDIT-C) 1. How often do you have a drink containing alcohol?: Monthly or less 2. How many drinks containing alcohol do you have on a typical day when you are drinking?: 1 or 2 3. How often do you have six or more drinks on one occasion?: Never Total Score: 1 FABIAN-7 AMB Questionnaire FABIAN-7 Date FABIAN - 7 assessed: 06/15/24 Feeling nervous, anxious, or on edge: 0 = Not at all Not being able to stop or control worryin = Not at all Worrying too much about different things: 0 = Not at all Trouble relaxin = Not at all Being so restless that it is hard to sit still: 0 = Not at all Becoming easily annoyed or irritable: 0 = Not at all Feeling afraid as if something awful might happen: 0 = Not at all Total FABIAN-7 score (0-4 normal; 5-9 mild; 10-14 moderate; 15-21 severe): 0 Source: Developed by Drs. Clayton Conde, Kat Grossman, Sanjay Grant and colleagues, with an educational raysa from [employer]. Review of Systems Const Denies poor appetite and Denies weakness Eyes Denies no additional complaints ENT Reports Normal hearing present, Denies dizziness, Denies nasal congestion, Denies tinnitus and Denies sore throat Card Denies chest pain, Denies syncope, Denies rapid heart rate and Denies dyspnea Resp Denies cough and Denies dyspnea GI Denies change in stool character, Reports constipation, Denies diarrhea, Denies nausea and Denies vomiting Denies urinary frequency, Denies difficulty voiding and Denies dysuria Neuro Reports Normal hearing present, Denies confusion, Denies dizziness, Denies syncope and Denies weakness Psych Denies confusion Physical exam (Primary Care) Vital Signs: Last Vital Signs Pulse 86 06/15/24 11:25 BP 134/92 H 06/15/24 11:25 Pulse Ox 98 06/15/24 11:25 Oxygen Delivery Method Room Air 06/15/24 11:25 BMI result Body Mass Index 33.9 Tobacco/Smoking Status: Tobacco use Status Tobacco use date assessed 06/15/24 06/15/24 11:33 Patient Tobacco Use Status Former Tobacco user 06/15/24 11:33 Tobacco use type Cigarette 06/15/24 11:33 e-Cigarette/Vaping Use Never Used 06/15/24 11:33 PHQ-9: PHQ-9 Score PHQ-9: Total score 0 06/15/24 11:33 Depression Screening Interpretation: Negative Thrive Assessment: Date of Thrive Assessment Date Thrive assessed 06/15/24 06/15/24 11:33 Currently or been in a relationship where the following occur: No concerns reported Const General: No confusion Orientation/consciousness: No confusion HENMT Head: Yes normocephalic Ears: external ears normal and TM's normal bilaterally Face and sinus: Yes normal facial exam Mouth: moist mucous membranes Throat: Yes tonsils normal Eyes Conjunctivae: conjunctivae normal Pupils: Equal, round and reactive pupils present and Pupil accommodation reflex normal Direct Ophthalmoscopy: normal light reflex Neck Neck: No lymphadenopathy Thyroid: Thyroid normal Chest Chest palpation & inspection: normal inspection of the chest Resp Effort & Inspection: normal respiratory effort and no audible wheezes Auscultation: clear to auscultation bilaterally, no crackles, no wheezes and lung sounds not diminished Cardio Rate: regular rate Rhythm: regular rhythm Peripheral pulses: radial pulses present and dorsalis pedis present GI Palpation (GI): no masses Auscultation: normal bowel sounds and normoactive bowel sounds Rectal Exam - Female: deferred Skin General skin exam: no rashes or lesions noted Rashes: no rashes Neuro General: No confusion Cranial nerves: Yes Equal, round and reactive pupils present and Yes Normal hearing present Cognition (Neuro): normal cognition Gait exam (Neuro): Normal gait present Motor exam (neuro): 5/5 motor strength present throughout Deep tendon reflexes (DTR's): Right brachioradialis reflex intensity grade: 2+, Left brachioradialis reflex intensity grade: 2+, Right patellar reflex intensity grade: 2+ and Left patellar reflex intensity grade: 2+ Extrem General: No edema Coding Level of Care Code Est Pt Prev Care >65y(45785) Diagnoses Annual physical exam Z00.00 Breast cancer screening by mammogram Z12. Coronary artery disease involving [place] coronary artery of [place] heart without angina pectoris I25.10 Coronary Disease-Associated Artery/Lesion type: [place] artery [place] vs. transplanted heart: [place] heart Associated angina: without angina Hypercholesterolemia E78.00 Obesity (BMI 30-39.9) E66.9 Gastroesophageal reflux disease without esophagitis K21.9 Esophagitis presence: without esophagitis Psoriasis L40.9 Osteopenia M85.80 Celiac disease K90.0 Thyroid nodule E04.1 Blood pressure elevated without history of HTN R03.0 Impaired fasting blood sugar R73.01 Assessment & Plan Assessment & Plan (1) Annual physical exam: Code(s): Z00.00 - Encounter for general adult medical examination without abnormal findings Category: Medical Plan: Patient is advised to eat healthy, keep well hydrated, keep active and have adequate sleep. (2) Breast cancer screening by mammogram: Code(s): Z12. - Encounter for screening mammogram for malignant neoplasm of breast Category: Medical Plan: Patient is reminded about the mammogram (3) Coronary artery disease: Comment: [place] 2000 - follows w PCP Dr. Foster Code(s): I25.10 - Atherosclerotic heart disease of [place] coronary artery without angina pectoris Category: Medical Qualifiers: Coronary Disease-Associated Artery/Lesion type: [place] artery [place] vs. transplanted heart: [place] heart Associated angina: without angina Qualified Code(s): I25.10 - Atherosclerotic heart disease of [place] coronary artery without angina pectoris Plan: Control the cholesterol, weight, blood pressure, patient not on any aspirin (4) Hypercholesterolemia: Code(s): E78.00 - Pure hypercholesterolemia, unspecified Category: Medical Plan: Avoid fried foods, chicken skin, eggs, butter margarine, pastries and meat. Be it pork or beef they have a lot of cholesterol LDL goal of less than 70 and triglyceride of less than 150 on rosuvastatin 5 mg once a day (5) Obesity (BMI 30-39.9): Code(s): E66.9 - Obesity, unspecified Category: Medical Plan: Diet and exercise (6) GERD (gastroesophageal reflux disease): Comment: Pantoprazole 40 mg daily may try to reduce dose in the future if symptoms are completely resolved. Reinforced importance of continuing medication and consistency to avoid breakthrough Avoid culprits-EGD Code(s): K21.9 - Gastro-esophageal reflux disease without esophagitis Category: Medical Qualifiers: Esophagitis presence: without esophagitis Qualified Code(s): K21.9 - Gastro-esophageal reflux disease without esophagitis Plan: Avoid the foods that causes that usually spicy foods, tomato products, juices, coffee, soda and foods that your sensitive to. After eating do not lie down, allow 3-4 hours before in lie down. And keep the head of bed above 30 degrees to avoid the acid from going up. (7) Psoriasis: Comment: NEDERM. syed has seen derma in [facility] and told Eczema February 2019, Code(s): L40.9 - Psoriasis, unspecified Category: Medical Plan: Continue to follow-up with dermatology (8) Osteopenia: Comment: October 2022 Code(s): M85.80 - Other specified disorders of bone density and structure, unspecified site Category: Medical Plan: Reminded of repeat testing this year (9) Celiac disease: Comment: Maintain gluten free diet , Pt will benefit from decreasing fiber intake and taking lactaid enzymes when choosing lactose containing foods Reviewed labs normal IgA, tTG Code(s): K90.0 - Celiac disease Category: Medical Plan: Continue to follow-up with Gastroenterology (10) Thyroid nodule: Comment: February, biopsy 07/2023 follicular nodular disease right thyroid Code(s): E04.1 - Nontoxic single thyroid nodule Category: Medical (11) Blood pressure elevated without history of HTN: Code(s): R03.0 - Elevated blood-pressure reading, without diagnosis of hypertension Category: Medical (12) Impaired fasting blood sugar: Code(s): R73.01 - Impaired fasting glucose Category: Medical Plan History of Present Illness The patient is a 74-year-old female presenting for an annual physical examination to assess the current management of her chronic conditions including coronary artery disease, hypercholesterolemia, and gastroesophageal reflux disease. Her coronary artery disease is monitored closely due to her history and elevated LDL levels, requiring careful dietary management and potential adjustments in pharmacotherapy, particularly with rosuvastatin. Her hypercholesterolemia contributes to her cardiac risk profile, emphasizing the necessity for active cholesterol control. Gastroesophageal reflux disease is managed with Pepcid and lifestyle modifications, especially concerning nighttime symptoms and exacerbations linked to dietary choices. Despite these interventions, she experiences persistent cough, possibly exacerbated by suboptimal control of reflux. Her regimen might be re-evaluated with stronger acid suppression, considering her previous successful response to pantoprazole. Her psoriasis management is supervised by dermatology specialists, and she remains under treatment with Dupixent, although exploratory adjustments may be required following recent dermatologic changes. 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 The patient underwent a colonoscopy in 2020, identifying tubular adenomas, which necessitates continued monitoring. Her recent laboratory findings revealed a fasting glucose of 100, prompting dietary consideration to avert progression. She mentions attempts to intensify physical activity amid arthritis-related restrictions, particularly concerning her shoulders, where prior surgical interventions and current symptoms suggest further orthopedic consultation might be beneficial. Finally, the persistent adherence to celiac disease dietary restrictions was noted, with no new gastrointestinal complaints reported. Health Maintenance - Lipid panel and fasting blood sugar monitoring given hyperlipidemia and elevated LDL - Periodic follow-up of thyroid nodular disease with ultrasound and endocrine consultation - Emphasize cholesterol management target: LDL <70, triglyceride <150 - Next recommended mammogram planned as last performed in October 2022 - Colonoscopy surveillance recommended given history of tubular adenomas - Discussed importance of weight management, diet consideration, and physical activity adjustments given existing obesity - Reinforced avoidance of gluten-containing foods due to celiac disease - Vaccinations: Shingles, updated Tetanus, Pneumonia discussed; flu shot and COVID booster as dictated by guidelines Social History - No alcohol or tobacco use; no recreational drug use - Reports increased walking activity for weight management despite past shoulder surgery complications - Diet reported to limit salt due to heart risk, except for occasional high-salt snacks (potato chips) - Expressed interest in maintaining and enhancing mobility through low-impact exercises - Follow a gluten-free diet related to celiac disease despite challenges with dietary restrictions Review of Systems - Constitutional: Denies fevers, chills, or significant weight changes - Cardiovascular: Reports history of coronary artery disease; denies new chest pain, swelling - Gastrointestinal: Reports ongoing GERD symptoms; denies nausea, vomiting, diarrhea, constipation - Dermatologic: Reports active management of psoriasis with Dupixent - Endocrine: Denies new thyroid symptoms; surveillance under endocrinology for follicular nodules Physical Exam General: Cooperative, healthy appearing, comfortable, no acute distress and well developed Orientation: Patient oriented x3 Limitations: No limitations Head: Normal to inspection Ears: Hearing grossly normal bilaterally Nose: Normal external nose present Face and sinus: Normal facial exam Eyes: Appearance normal, both eyes and all related structures Neck: Normal visual inspection and Yes full ROM Respiratory: Normal respiratory effort and able to speak in complete sentences. Clear to auscultation bilaterally Cardiovascular: Regular rate and rhythm. Normal S1 and S2 GI: Normal to inspection. Soft to palpation and nontender Skin: No rashes or lesions noted Neuro: Patient oriented x3 Extremities: Normal to inspection Results - Labs: LDL cholesterol 161 (goal <70), triglycerides 168 (goal <150), fasting blood sugar 100 - Tests: Thyroid aspiration biopsy in July 2023 showing benign follicular nodular disease Plan I advised resuming rosuvastatin for the management of hypercholesterolemia with follow-up lipid panels in three months. Prescription adjustments for blood pressure monitoring were discussed based on serial home readings. GERD management will be reassessed pending symptom control with current Pepcid use, considering the potential need for pantoprazole. Psoriasis remains under dermatology care with current treatment strategy including Dupixent. Endocrinology follow-up is maintained for benign follicular thyroid nodules. We discussed obesity management options including newer insulin-like medications, considering patient preference, insurance considerations, and her desire for a multidisciplinary weight loss approach. Health maintenance schedules for mammogram and bone density were reinforced. Patient was informed and verbally consented to the use of an ambient scribe for clinic note documentation during this visit. Discussion Notes We discussed the benefits and importance of resuming rosuvastatin given the current LDL target in light of her coronary artery disease history. The conversation included the significance of ongoing lipid monitoring and potential adjustments based on upcoming lab results. I advised continued lifestyle modifications for GERD, emphasizing dietary choices and positioning strategies to alleviate reflux symptoms, with the option of pantoprazole if symptoms persist. I acknowledged the challenges of weight loss in her scenario, exploring available pharmacotherapeutic interventions while addressing cost and availability issues with the newer once-weekly medications for weight reduction. Thyroid status remains monitored per benzene washer guidance, with ensured follow-up imaging. As a final point, we highlighted current vaccination status with considerations for influenza and COVID-19 boosters annually or bi-annually. Patient Instructions - Start taking rosuvastatin 5 mg daily once restocked - Monitor blood pressure three times a week; report elevated trends - Continue taking Pepcid daily for GERD; notify if symptoms worsen - Schedule an endocrinology follow-up for thyroid nodule surveillance - Maintain gluten-free diet due to celiac disease - Engage in regular low-impact exercises as tolerated, considering shoulder limitations - Keep dermatology appointment for psoriasis management - Follow instructions for upcoming mammogram and bone density testing - Report any new symptoms or concerns promptly - Consider the discussed weight management options, weigh insurance options, and inform of decisions Orders: Orders Lipid Panel 3 Months E78.00 - Pure hypercholesterolemia, unspecified, R03.0 - Elevated blood-pressure reading, without diagnosis of hypertension Comprehensive Met. Panel 3 Months R03.0 - Elevated blood-pressure reading, without diagnosis of hypertension US thyroid Today E04.1 - Nontoxic single thyroid nodule Medications: New tirzepatide (weight loss) (Zepbound) for 4 weeks 2.5 mg (0.5 mL) subcut QWEEK 2 mL 3RF E66.9 - Obesity, unspecified blood pressure monitor (Blood Pressure Kit) As directed 1 ea 0RF I10 - Essential (primary) hypertension, R03.0 - Elevated blood-pressure reading, without diagnosis of hypertension Refilled rosuvastatin 5 mg PO DAILY 90 tabs 0RF E78.00 - Pure hypercholesterolemia, unspecified pantoprazole 40 mg PO DAILY 90 tabs 1RF R03.0 - Elevated blood-pressure reading, without diagnosis of hypertension aspirin 81 mg PO DAILY 90 days 90 tabs 3RF I25.10 - Atherosclerotic heart disease of [place] coronary artery without angina pectoris
[2024-06-15 11:25] VITALS: BP 134/92; PULSE 86; O2SAT 98; BMI 33.9
--- OUTSIDE RECORDS SUMMARY | 2024-06-15 13:11 | XMS_ITS | Clinical Summary ---
Author Organization [facility] Address [address] [place] [address] Care Team Providers Care Clinical Instructor Name Role Phone Ambreen Foster MD Primary Care Provider [phone] Allergies Active Allergy Reactions Criticality Noted Date [...] age to complete this topic Care Teams Clinical Instructor Relationship Specialty Start Date End Date Po, Ambreen Sheikh MD [address] [place] [address] [address] [facility] [place] [id number] PCP - General Internal Medicine 12/31/21
== END 2024-06-15 12:13 | disposition home or self-care (01) ==
LOC: HO.HMCH 11:23
PROVIDERS: PCP Internal Medicine; Visit Provider Internal Medicine
DX: Z00.00 Encounter for general adult medical examination without abnormal findings (principal); I25.10 Atherosclerotic heart disease of native coronary artery without angina pectoris; Z12.31 Encounter for screening mammogram for malignant neoplasm of breast; Z68.33 Body mass index [BMI] 33.0-33.9, adult; E66.9 Obesity, unspecified; E78.00 Pure hypercholesterolemia, unspecified; K21.9 Gastro-esophageal reflux disease without esophagitis; L40.9 Psoriasis, unspecified; M85.80 Other specified disorders of bone density and structure, unspecified site; K90.0 Celiac disease; E04.1 Nontoxic single thyroid nodule; R03.0 Elevated blood-pressure reading, without diagnosis of hypertension; R73.01 Impaired fasting glucose

== ENCOUNTER 2024-07-30 08:52 | Outpatient (REF) | payer MEDICARE, SELFPAY ==
--- NOTE | ~2024-07-30 | MM_ITS ---
EXAMINATION: MM SCREENING DIGITAL BREAST TOMOSYNTHESIS, BILATERAL CLINICAL INFORMATION: Screening. Asymptomatic. COMPARISON: Mammography: Comparison is made with available priors TECHNIQUE: Digital breast mammography with tomosynthesis is performed in both the craniocaudal and mediolateral oblique views along with computer-aided detection (CAD). FINDINGS: There are scattered areas of fibroglandular density (ACR BI-RADS breast composition Category b). There are no significant masses, abnormal calcifications, or other abnormalities. MM/MM tomosynthesis screening BI IMPRESSION: No mammographic evidence of malignancy. ASSESSMENT: BI-RADS BI-RADS 1 - Negative RECOMMENDATION: Routine annual mammography screening. 1 year F/U This examination should not preclude the clinical evaluation of a suspicious palpable abnormality. This patient's information was entered into a reminder system with a target due date for their next mammogram. Electronically signed by: Mel Woodard DO 08/05/2024 12:21 PM EDT
== END 2024-07-30 08:53 | disposition home or self-care (01) ==
LOC: HO.MAMMO 08:52
PROVIDERS: PCP Internal Medicine; Visit Provider Internal Medicine
DX: Z12.31 Encounter for screening mammogram for malignant neoplasm of breast (principal)
CPT/HCPCS: 77063; 77067

== ENCOUNTER → 2024-07-30 09:00 | Outpatient (BNV) | payer MEDICARE, SELFPAY | PROVIDERS: PCP Internal Medicine; Visit Provider Internal Medicine | DX: Z12.31 Encounter for screening mammogram for malignant neoplasm of breast (principal) | CPT/HCPCS: 77063; 77067 ==

== ENCOUNTER 2024-08-05 11:40 | Outpatient (REF) | payer MEDICARE, SELFPAY ==
--- NOTE | ~2024-08-05 | US_ITS ---
CLINICAL HISTORY: I77.71 - Dissection of carotid artery US Bilateral Carotid Duplex Comparison: None provided Findings: No significant plaque within the common carotid arteries. No significant plaque within the carotid bulbs. Color doppler and spectral tracings normal. Peak systolic velocities: Right CCA: 94 cm/s. Right ICA: 168 cm/s. ICA/CCA ratio: 0.5 Right ECA: 90.4 cm/s. Right vertebral artery flow antegrade. Left CCA: 111 cm/s. Left ICA: 77 cm/s. ICA/CCA ratio: 0.6 Left ECA: 115 cm/s. Left vertebral artery flow antegrade. IMPRESSION: 1. 50-69% right internal carotid artery stenosis. 2. No significant left internal carotid artery stenosis. 3. Antegrade vertebral artery flow bilaterally. This document has been electronically signed by: Christian Alexis MD on 08/05/2024 14:08:02
== END 2024-08-05 11:41 | disposition home or self-care (01) ==
LOC: HO.US 11:40
PROVIDERS: PCP Internal Medicine; Visit Provider Internal Medicine
DX: I77.71 Dissection of carotid artery (principal)
CPT/HCPCS: 93880

== ENCOUNTER → 2024-08-05 11:42 | Outpatient (BNV) | payer MEDICARE, SELFPAY | PROVIDERS: PCP Internal Medicine; Visit Provider Radiology Diagnostic Radiology | DX: I77.71 Dissection of carotid artery (principal) | CPT/HCPCS: 93880 ==

== ENCOUNTER 2024-08-27 15:59 | Outpatient (REF) | payer MEDICARE, SELFPAY ==
--- NOTE | ~2024-08-27 | US_ITS ---
EXAMINATION: US THYROID HISTORY: E04.1 - Nontoxic single thyroid nodule TECHNIQUE: Real-time grayscale ultrasound imaging was performed and images were reviewed. COMPARISON: Comparison is made with the prior examination dated 04/09/2023. FINDINGS: SIZE: The right thyroid lobe measures 5.1 x 1.7 x 1.5 cm. The left thyroid lobe measures 4.8 x 1.8 x 1.2 cm. The isthmus measures 4 mm. FLOW: Flow to the gland is normal. ECHOGENICITY: The echotexture of the gland is heterogeneous. NODULES: Multiple bilateral thyroid nodules are identified, the largest of which are described below: Nodule #: 1 Location: Mid to upper pole of the right thyroid lobe measuring 1.6 x 1.0 x 0.7 cm (previously 1.6 x 1.0 x 0.8 cm). Shape: Wider than tall (0 points) Margins: Smooth (0 points) Echotexture: Isoechoic (1 point) Composition: Solid (2 points) Calcifications: Punctate calcifications (3 points) Total points: 6 TIRADS: TR4: Moderately suspicious. Nodule #: 2 Location: Mid to lower pole of the right thyroid lobe measuring 8 x 6 x 9 mm (previously 9 x 7 x 7 mm). Shape: Wider than tall (0 points) Margins: Smooth (0 points) Echotexture: Hypoechoic (2 points) Composition: Solid (2 points) Calcifications: Macrocalcifications (1 point) Total points: 5 TIRADS: TR4: Moderately suspicious. Nodule #: 3 Location: Upper pole of the left thyroid lobe measuring 6 x 4 x 4 mm (previously 7 x 5 x 6 mm). Shape: Wider than tall (0 points) Margins: Smooth (0 points) Echotexture: Isoechoic (1 point) Composition: Mixed (1 point) Calcifications: None (0 points) Total points: 2 TIRADS: TR2: Not suspicious Nodule #: 4 Location: Midportion of the left thyroid lobe measuring 8 x 7 x 7 mm (previously 8 x 7 x 7 mm). Shape: Wider than tall (0 points) Margins: Smooth (0 points) Echotexture: Indeterminate (1 point) Composition: Mixed (1 point) Calcifications: Punctate calcifications (3 points) Total points: 5 TIRADS: TR4: Moderately suspicious. Nodule #: 5 Location: Lower pole of the left thyroid lobe measuring 9 x 5 x 6 mm (previously 7 x 5 x 6 mm). Shape: Wider than tall (0 points) Margins: Smooth (0 points) Echotexture: n/a Composition: Spongiform (0 points) Calcifications: None (0 points) Total points: 0 TIRADS: TR1: Benign US/US thyroid IMPRESSION: Multinodular thyroid gland as described above, without change from the prior study. The nodule at the mid to upper pole of the right thyroid lobe (#1 above) meets ACR TI-RADS criteria for ultrasound-guided fine-needle aspiration. ACR TI-RADS Guidelines TR1 (0 points): Benign, No follow-up or biopsy required TR2 (2 points): Not Suspicious, No biopsy or follow up indicated TR3 (3 points): Mildly Suspicious, FNA if >= 2.5 cm, Follow if >= 1.5 cm TR4 (4-6 points): Moderately Suspicious, FNA if >= 1.5 cm, Follow if >= 1.0 cm TR5 (>=7 points): Highly Suspicious, FNA if >= 1.0 cm, Follow if >= 0.5 cm Electronically signed by: Clayton Moran MD 08/30/2024 07:28 AM EDT
--- OUTSIDE RECORDS SUMMARY | 2024-08-27 16:01 | XMS_ITS | Clinical Summary ---
Author Organization [facility] Address [address] [place] [address] Care Team Providers Care Flooring Installer Name Role Phone Ambreen Foster MD Primary Care Provider [phone] Allergies Active Allergy Reactions Criticality Noted Date [...] 1 - PCV) 05/30/2015 Influenza Vaccine (#1) 2024 RSV Adult > 60+ Yrs or Pregn ant (1 - 1-dose 75+ series) 2025 Hepatitis B Vaccines Aged Out No long er eligible based on patient's age to complete this topic RSV Ped < 20 months Aged Out No longe r eligible based on patient's age to complete this topic Care Teams Flooring Installer Relationship Specialty Start Date End Date Po, Ambreen Sheikh MD [address] [place] [address] Dr Sharif [address] [facility] [place] [id number] PCP - General Internal Medicine 12/31/21
--- OUTSIDE RECORDS SUMMARY | 2024-08-27 16:01 | XMS_ITS | Clinical Summary ---
Author Organization [facility] Address [address] [place] [address] Phone Care Team Providers Care Supervisor Aircraft Maintenance Name Role Phone Po, Ambreen Villarreal MD Primary Care Provider [phone] Allergies Active Allergy Reactions Criticality Noted Date Comments Codeine Nausea Only High 12/13/2013 Cortisone Flushing,Nausea Only,Unknown High 12/13/2013 Other 07/26/2024 Sodium metabisulfite, Benzoic acid, Hydroperoxides of dipentene (limonene) Medications ACETAMINOPHEN (TYLENOL ARTHRITIS ORAL) Take by mouth. Active ondansetron (ZOFRAN-ODT) 4 MG disintegrating tablet ZOFRAN ODT (CHEMO N/V) (ONDANSETRON ODT (CHEMO N/V)) 4 MG TAB RAPDIS; Dose: Not available; Form: Not available; Route: PO; Frequency: Q8H PRN nausea; Directions: Not available; Details: Duration: 4 day(s); Dispense: 12 Tablet(s); Status: Active; Source: LATRICE SEGOVIA M.D.; Date: 03/18/2014 03/18/19 15 Active rosuvastatin (CRESTOR) 10 MG tablet Take 10 mg by mouth daily. Active pantoprazole (PROTONIX) 40 MG tablet Take 40 mg by mouth daily. Active aspirin 81 MG EC tablet Take 81 mg by mouth daily. Active bacillus coagulans-inulin 1 billion-250 cell-mg Cap Take 250 mg by mouth daily. Active therapeutic multivitamin tablet Take 1 tablet by mouth daily. Active ascorbic acid, vitamin C, (VITAMIN C) 250 mg Chew Take by mouth daily. Active cholecalciferol (VITAMIN D3) 25 MCG (1,000 unit) tablet Take 1,000 Units by mouth daily. Active betamethasone, augmented, (DIPROLENE) 0.05 % ointment Apply thick layer to hands and feet twice daily for 2 weeks, then use 3x weekly as needed 100 g 2 12/10/19 24 Active tacrolimus (PROTOPIC) 0.1 % ointment Apply topically 2 (two) times a day. Use on fingers on days when not using betamethasone . 100 g 3 06/17/19 25 Active DUPIXENT SYRINGE 300 mg/2 mL subcutaneous syringe INJECT 1 SYRINGE (300MG TOTAL) UNDER THE SKIN EVERY 14 DAYS 12 mL 1 08/21/19 25 Active dupilumab (DUPIXENT SYRINGE) 300 mg/2 mL subcutaneous syringe Inject 2 mL (300 mg total) under the skin every 14 (fourteen) days. 12 mL 1 12/10/19 24 025 Discontin ued(Reord er) Active Problems Problem Noted Date Diagnosed Date EIC (epidermal inclusion cyst) 06/16/2024 Keratosis, seborrheic 06/16/2024 Scar 06/16/2024 Fracture of humerus 12/13/2013 Overview (04/01/2014): Fracture of humerus Assessment & Plan (10/03/2014 11:07 AM EDT): Obtain Grashey View Right Shoulder in Maximum Abduction Shoulder pain 02/15/2013 Overview (04/01/2014): Shoulder pain; Right Encounters Date Type Department Care Team Description 08/20/2024 Refill [facility] [address] [address] Piper Horn MD Medication Refill 07/26/2024 9:00 AM EDT Office Visit [facility] [address], [address] [place] [address] Liam Burch MD Allergic contact dermatitis due to fragrance (Primary Dx); Contact dermatitis due to preservative 07/23/2024 1:00 PM EDT Office Visit [facility] [address], [address] [place] [address] Liam Burch MD Contact dermatitis due to other agent, unspecified contact dermatitis type (Primary Dx) 07/08/2024 10:00 AM EDT Telemedicine [facility] [address], [address] [place] [address] Liam Burch MD Contact dermatitis due to other agent, unspecified contact dermatitis type (Primary Dx) 06/16/2024 9:15 AM EDT Office Visit [facility] [address] [address] Piper Horn MD EIC (epidermal inclusion cyst) (Primary Dx); Keratosis, seborrheic; Scar from Last 3 Months Immunizations Immunization Administration Dates Next Due COVID-19 (Pre-12/02) Moderna Vaccine, mRNA, PF 10/17/2020,05/09/2020,04/11/2020 Family History Medical History Relation Comments Coronary artery disease Neg Hx Social History Tobacco Use Types Packs/Day Years Used Date Smoking Tobacco: Former Cigarettes Q uit: 05/28/1976 Smokeless Tobacco: Never Education Answer Date Recorded Are you interested in more education? Not on dean e 06/07/2022 Are you concerned about learning? Not on file 06/07/2022 No 06/07/2022 No 06/07/2022 Digital Access Answer Date Recorded No 07/08/2022 No 07/08/2022 No 07/08/2022 Reliable internet access at home? Not on file 07/08/2022 Device with a working camera? Not on file Comments Unknown Sex and Gender Information Value Date Recorded Sex Assigned at Female 01/03/2020 3:06 PM EST Legal Sex Female 10:03 AM EST Gender Identity Female 01/03/2020 3:06 PM EST Sexual Orientation Straight 01/03/2020 3: 06 PM EST Last Filed Vital Signs Vital Sign Reading Time Taken Comments Blood Pressure 114/73 12/13/2013 8:14 AM EST Pulse 64 12/13/2013 8:14 AM EST Temperature 36.4 C (97.6 F) 2015 6:07 PM EDT Respiratory Rate - - Oxygen Saturation - - Inhaled Oxygen Concentration - - Weight 88.5 kg (195 lb) 07/08/2024 10:08 AM EDT Height 168.9 cm (5' 6.5 ) 07/08/2024 10:08 AM ED T Body Mass Index 31.01 07/08/2024 10:08 AM EDT Plan of Treatment Upcoming Encounters Date Type Department Care Team (Late st Contact Info) Description 12/22/2024 9:15 AM EST Office Visit [facility] [address] [place] [address] Piper Horn MD [address] [place] [address] [email or web address] 06/21/2025 8:30 AM EDT Office Visit [facility] [address] [place] [address] Piper Horn MD [address] [place] [phone] [email or web address] Health Maintenance Due Date Last Done Comments LIPID PANEL 1950 DEPRESSION SCREENING 1962 SMOKING Hx and SMOKELESS TOBACCO SCREENING 05/30/1963 MAMMOGRAM 1990 COLOGUARD 05/30/1995 COLONOSCOPY 05/30/1995 COLORECTAL CANCER SCREENING 05/30/1995 FIT TEST 05/30/1995 FOBT 05/30/1995 SIGMOIDOSCOPY 05/30/1995 VIRTUAL COLONOSCOPY 05/30/1995 OSTEOPOROSIS SCREENING INITIAL (ONE-TIME) 05/30/2015 COVID-19 VACCINE ( season) 2024 10/20/2023, 03/09/2023, 05/31/2022, Additional history exists RSV VACCINE (1 - 1-dose 75+ series) 2025 Adult Td,Tdap Booster 10/17/2032 10/17/2022 HEPATITIS C SCREENING Completed 01/13/2020 PNEUMOCOCCAL VACCINES (50+ years) Completed 09/03/2021, 05/02/2021, 10/24/2016 ZOSTER VACCINES Completed 09/08/2022, 05/31/2022 HEPATITIS A VACCINES Aged Out No long er eligible based on patient's age to complete this topic HIB VACCINES Aged Out No longer eligi ble based on patient's age to complete this topic MENINGOCOCCAL VACCINES (ACWY) Aged Out No longer eligible based on patient's age to complete this topic MENINGOCOCCAL VACCINES (B) Aged Out N o longer eligible based on patient's age to complete this topic Medical Devices Not on file Procedures Procedure Name Priority Date/Time Associated Diagnosis Comments HEPATITIS C ANTIBODY, QUALITATIVE Routine 01/13/2020 4:04 PM EST Pruritus from Last 3 Months or Most Recently Relevant to Health Maintenance Results * Hepatitis C antibody, qualitative (01/13/2020 4:04 PM EST) HCV Nonreactive Nonreactive [facility] 01/13/2020 4:04 PM EST 01/13/2020 4:12 PM EST us Leticia Johnson MD LAB BLOOD ORDERABLES Final R esult Performing Organization Address City/State/[facility] Co de Phone Number [facility] [address] [place] [phone] from Last 3 Months or Most Recently Relevant to Health Maintenance Insurance MEDICARE PART A & B [facility] MEDICARE PREFERRED SUPPLEMENT MEDICARE PART A & B [place] [employer]ARE PREFERRED SUPPLEMENT MEDICARE PART A & B [facility] MEDICARE PREFERRED SUPPLEMENT MEDICARE PART A & B [facility] MEDICARE PREFERRED SUPPLEMENT MEDICARE PART A & B [place] [employer] PREFERRED SUPPLEMENT MEDICARE PART A & B [facility] MEDICARE PREFERRED SUPPLEMENT MEDICARE PART A & B [facility] MEDICARE PREFERRED SUPPLEMENT MEDICARE PART A & B [facility] MEDICARE PREFERRED SUPPLEMENT MEDICARE PART A & B [facility] MEDICARE PREFERRED SUPPLEMENT Care Teams Supervisor Aircraft Maintenance Relationship Specialty Start Date End Date Ambreen Foster MD [address] [place] [address] [address] [place] [phone] PCP - General Internal Medicine 06/23/17 Additional Source Comments The information contained in this document represents components of the legal health record. It is not the complete legal health record.[facility]
--- OUTSIDE RECORDS SUMMARY | 2024-08-27 16:01 | XMS_ITS ---
[facility] Name [facility] Unknown Encounters Encounter Type Encounter Reason Primary Diagnosis Location Date Ambulatory [facility] 12/24/2023 Care Team Organization Name Specialty Phone Email Start Date End Da te [facility] MARIELA BRAGG Primary Care 01/10/2022 024
== END 2024-08-27 16:00 | disposition home or self-care (01) ==
LOC: HO.US 15:59
PROVIDERS: PCP Internal Medicine; Visit Provider Internal Medicine
DX: E04.1 Nontoxic single thyroid nodule (principal)
CPT/HCPCS: 76536

== ENCOUNTER → 2024-08-27 16:01 | Outpatient (BNV) | payer MEDICARE, SELFPAY | PROVIDERS: PCP Internal Medicine; Visit Provider Radiology Diagnostic Radiology | DX: E04.2 Nontoxic multinodular goiter (principal) | CPT/HCPCS: 76536 ==

== ENCOUNTER 2024-09-14 10:25 | Outpatient (REF) | payer MEDICARE, SELFPAY ==
--- NOTE | 2024-09-14 10:45 | ECG_ITS ---
Test Reason : ASCD W/O ANGINA Blood Pressure : */* mmHG Vent. Rate : 85 BPM Atrial Rate : 85 BPM P-R Int : 172 ms QRS Dur : 80 ms QT Int : 374 ms P-R-T Axes : 45 -37 45 degrees QTcB Int : 445 ms Normal sinus rhythm Left axis deviation Abnormal ECG When compared with ECG of 10-May-2021 11:04, No significant change was found Referred By: Ambreen Foster Electronically Signed By: ADELA WHITMORE
--- OUTSIDE RECORDS SUMMARY | 2024-09-14 11:06 | XMS_ITS | Clinical Summary ---
Author Organization [facility] Address [address] [place] [address] Care Team Providers Care Senior Piping Designer Name Role Phone Ambreen Foster MD Primary Care Provider [phone] Allergies Active Allergy Reactions Criticality Noted Date [...] age to complete this topic Care Teams Senior Piping Designer Relationship Specialty Start Date End Date Po, Ambreen Sheikh MD [address] [place] [address] [address] Sharif [address] [facility] [place] [phone] PCP - General Internal Medicine 12/31/21
[2024-09-14 11:56] LABS: Appearance Urine Cloudy; Glucose Urine UA Negative (Negative); PH 6.5 (5.0-9.0); Specific Gravity - Urine 1.020 (1.005-1.025); UMIC TRIGGER UACC YES
[2024-09-14 11:56] LABS: Alanine Aminotransferase 20 U/L (0-31); Albumin Level 4.0 g/dL (3.5-5.0); Alkaline Phosphatase 91 U/L (39-117); Anion Gap 9 (12-20); Aspartate Amino Transferase 25 U/L (5-31); Blood Urea Nitrogen 11 mg/dL (9-16); Calcium 9.2 mg/dL (8.4-10.2); Carbon Dioxide 27 mmol/L (22-29); Chloride 111 mmol/L (96-108); Cholesterol 165 mg/dL (<200); Estimated Glomerular Filt Rate > 60; HDL Cholesterol 42 mg/dL (>40); Potassium 4.4 mmol/L (3.3-5.1); Sodium 143 mmol/L (135-145); Total Protein 6.7 g/dL (6.5-8.0); Triglycerides 92 mg/dL (<150)
[2024-09-14 12:03] LABS: UACC Culture Trigger YES
== END 2024-09-14 10:26 | disposition home or self-care (01) ==
LOC: HO.LAB 10:25
PROVIDERS: PCP Internal Medicine; Visit Provider Internal Medicine
DX: I25.10 Atherosclerotic heart disease of native coronary artery without angina pectoris (principal); R03.0 Elevated blood-pressure reading, without diagnosis of hypertension; E78.00 Pure hypercholesterolemia, unspecified; R39.9 Unspecified symptoms and signs involving the genitourinary system
CPT/HCPCS: 36415; 80053; 80061; 81001; 87086; 87088; 87186; 93005

== ENCOUNTER → 2024-09-14 10:45 | Outpatient (BNV) | payer MEDICARE, SELFPAY | PROVIDERS: PCP Internal Medicine; Visit Provider Internal Medicine | DX: R94.31 Abnormal electrocardiogram [ECG] [EKG] (principal); I25.10 Atherosclerotic heart disease of native coronary artery without angina pectoris | CPT/HCPCS: 93010 ==

== ENCOUNTER 2025-01-31 11:23 | Outpatient (REF) | payer MEDICARE, SELFPAY ==
[2025-01-31 12:01] LABS: Appearance Urine Clear; Glucose Urine UA Negative (Negative); PH 6.0 (5.0-9.0); Specific Gravity - Urine 1.020 (1.005-1.025)
[2025-01-31 12:09] LABS: MANUAL DIFF FLAG NO
[2025-01-31 12:27] LABS: Hematocrit 45.3 % (37.0-47.0); Hemoglobin 14.6 g/dl (12.0-16.0); Imm Gran Abs Auto 0.01 X10*3/uL (0.00-0.03); Imm Gran Pct Auto 0.2 % (0.0-0.4); Lymphocytes Absolute Auto 2.0 X10*3/uL (1.2-4.9); Mean Corpuscular HGB Conc 32.2 g/dl (31.0-35.0); Mean Corpuscular Hemoglobin 27.9 pg (27.0-33.0); Mean Corpuscular Volume 86.5 fL (80.0-98.0); NRBC Abs Auto 0.000 X10*3/uL (0.0-0.012); NRBC Pct Auto 0.0 /100WBC (0.0-0.2); Platelet Count 199 X10*3/uL (160-400); Red Blood Count 5.24 X10*6/uL (4.20-5.50); White Blood Count 5.2 X10*3/uL (4.8-10.8)
[2025-01-31 12:44] LABS: Hemoglobin A1C 94.2565 umol/L
[2025-01-31 13:29] LABS: Alanine Aminotransferase 19 U/L (0-31); Albumin Level 4.5 g/dL (3.5-5.0); Alkaline Phosphatase 85 U/L (39-117); Anion Gap 11 (12-20); Aspartate Amino Transferase 24 U/L (5-31); Blood Urea Nitrogen 16 mg/dL (9-16); Calcium 9.7 mg/dL (8.4-10.2); Carbon Dioxide 23 mmol/L (22-29); Chloride 109 mmol/L (96-108); Cholesterol 222 mg/dL (<200); Estimated Glomerular Filt Rate > 60; HDL Cholesterol 44 mg/dL (>40); Magnesium 2.1 mg/dL (1.6-2.6); Potassium 4.4 mmol/L (3.3-5.1); Sodium 139 mmol/L (135-145); Total Protein 6.9 g/dL (6.5-8.0); Triglycerides 75 mg/dL (<150)
[2025-01-31 14:25] LABS: Free T4 (Free Thyroxine) 1.03 ng/dL (0.71-1.85); Thyroid Stimulating Hormone 1.79 uIU/mL (0.32-4.0)
--- OUTSIDE RECORDS SUMMARY | 2025-01-31 14:35 | XMS_ITS | Clinical Summary ---
Author Organization [facility] Prior to 07/10/[address] [place] [address] Care Team Providers Care Air Conditioning Manager Name Role Phone Po, Ambreen Sheikh MD Primary Care Provider [phone] Allergies Active Allergy Reactions Criticality Noted Date [...] Details: Dispense: 100 Tablet(s); Status: Active; Source: KERWNI KEY P.ACrescencio-CCrescencio; Date: 04/21/2014 0 04/21/2014 Active LORazepam (Ativan) [...] age to complete this topic Care Teams Air Conditioning Manager Relationship Specialty Start Date End Date Po, Ambreen Sheikh MD [address] [place] [address] Dr Sharif [address] [facility] ANA LUISA Sánchez [phone] PCP - General Internal Medicine 12/31/21
--- OUTSIDE RECORDS SUMMARY | 2025-01-31 14:35 | XMS_ITS | Encounter Summary ---
Author Organization [facility] Address [address] [place] [address] Phone Care Team Providers Care Mails Supervisor Name Role Phone Carmen Delacruz MD Unavailable Unav ailable Alex Rubin MD Primary Care Provider [phone] Ambreen Foster MD Primary Care Provider [phone] Encounter Details Date Type Department Care Team (Late st Contact Info) Description 05/05/2017 Procedure Pass [facility] [address] [place] [address] Social History Tobacco Use Types Packs/Day Years Used Date Smoking Tobacco: Former Cigarettes Q uit: 05/28/1976 Comments Unknown Sex and Gender Information Value Date Recorded Sex Assigned at Female 01/03/2020 3:06 PM EST Legal Sex Female 10:03 AM EST Gender Identity Female 01/03/2020 3:06 PM EST Sexual Orientation Straight 01/03/2020 3: 06 PM EST documented as of this encounter Plan of Treatment Upcoming Encounters Date Type Department Care Team (Late st Contact Info) Description 06/21/2025 8:30 AM EDT [facility] Visit [facility] [address] [place] [address] Piper Horn MD [address] [place] [address] [email or web address] 01/18/2026 8:00 AM EST Office Visit [facility] [address] [address] Piper Horn MD [address] [place] [address] [email or web address] documented as of this encounter Visit Diagnoses Not on filedocumented in this encounter Care Teams Mails Supervisor Relationship Specialty Start Date End Date Alex Rubin MD [address] [place] [address] PCP - General Internal Medicine 10/03/14 06/22/17 Ambreen Foster MD [address] [place] [address] Drive [address] [place] [phone] PCP - General Internal Medicine 06/23/17 Carmen Delacruz MD Historical LMR Provider 06/25/14 02/17/21 documented as of this encounter Additional Source Comments The information contained in this document represents components of the legal health record. It is not the complete legal health record.[facility]
--- OUTSIDE RECORDS SUMMARY | 2025-01-31 14:35 | XMS_ITS | Encounter Summary ---
Author Organization [facility] Address [address] [place] [address] Phone Care Team Providers Care Military Cook Name Role Phone Carmen Delacruz MD Unavailable Unav ailable KanAlex ardon MD Primary Care Provider [phone] Ambreen Foster MD Primary Care Provider [phone] Encounter Details Date Type Department Care Team (Late st Contact Info) Description 06/05/2017 Transcribe [facility], Radio Flouroscopy [address] [place] [address] Perez Avery Jp, MD [address] [facility] [id number] [place] [address] [email or web address] Social History Tobacco Use Types Packs/Day Years [...] Office Visit [facility] [address] [address] Piper Horn MD [address] [place] [address] [email or web address] 01/18/2026 8:00 AM EST Office Visit [facility] [address] [facility] 1st [place] [address] Piper Horn MD [address] [place] [address] [email or web address] documented as of this encounter Visit Diagnoses Not on filedocumented in this encounter Care Teams Military Cook Relationship Specialty Start Date End Date Alex Rubin MD [address] [place] [address] PCP - General Internal Medicine 10/03/14 06/22/17 Ambreen Foster MD [address] [place] [address] Drive [address] [place] [phone] PCP - General Internal Medicine 06/23/17 Carmen Delacurz MD Historical LMR Provider 06/25/14 02/17/21 documented as of this encounter Additional Source Comments The information contained in this document represents components of the legal health record. It is not the complete legal health record.[facility]
--- OUTSIDE RECORDS SUMMARY | 2025-01-31 14:35 | XMS_ITS | Clinical Summary ---
Author Organization [facility] Address [address] [place] [address] Care Team Providers Care Education Site Manager Name Role Phone Unavailable Primary Care Provider Unavailabl e Social History Tobacco Use Types Packs/Day Years Used Date Smoking Tobacco: Never Assessed Comments Unknown Sex and Gender Information Value Date Recorded Sex Assigned at Not on file Legal Sex Female 11:48 PM EST Gender Identity Not on file Sexual Orientation Not on file Plan of Treatment Not on file
--- OUTSIDE RECORDS SUMMARY | 2025-01-31 14:35 | XMS_ITS | Clinical Summary ---
Author Organization [facility] Address [address] [place] [address] Phone Care Team Providers Care Certified Drug Counselor Name Role Phone Po, Ambreen Villarreal MD Primary Care Provider [phone] Allergies Active Allergy Reactions Criticality Noted Date [...] Active; Source: LATRICE SEGOVIA M.D.; Date: 03/18/2014 5 Active rosuvastatin (CRESTOR) 10 MG tablet Take [...] Take 1,000 Units by mouth daily. Active dupilumab (DUPIXENT SYRINGE) 300 mg/2 mL subcutaneous syringe Inject 2 mL (300 mg total) under the skin every 14 (fourteen) days. 12 mL 1 5 Active betamethasone, augmented, (DIPROLENE) 0.05 % ointment Apply thick layer to hands and feet twice daily for 2 weeks, then use 3x weekly as needed 100 g 2 5 Active tacrolimus (PROTOPIC) 0.1 % ointment Apply topically 2 (two) times a day. Use on fingers on days when not using betamethasone . 100 g 3 5 Active imiquimod (ALDARA) 5 % cream Apply 1 packet topically 5 (five) times a week. For 4 weeks. Will cause irritation, but HOLD for severe pain, oozing, ulceration. 24 packet 1 5 Active Active Problems Problem Noted Date Diagnosed Date EIC (epidermal inclusion cyst) 06/16/2024 Keratosis, seborrheic 06/16/2024 Scar 06/16/2024 Fracture of humerus 12/13/2013 Overview (04/01/2014): Fracture of humerus Assessment & Plan (10/03/2014 11:07 AM EDT): Obtain Grashey View Right Shoulder in Maximum Abduction Shoulder pain 02/15/2013 Overview (04/01/2014): Shoulder pain; Right Encounters Date Type Department Care Team Description 01/12/2025 Telephone [facility] [address] [place] [id number] Thao Nieto [facility] Assessment 01/12/2025 Documentation [facility] [address] [place] [phone] Malena Villarreal 12/29/2024 Refill [facility] [address] [phone] Kaylah Oreilly RN Results 12/22/2024 9:15 AM EST Office Visit [facility] [address] [phone] Piper Horn MD Neoplasm of uncertain behavior of skin (Primary Dx); Contact dermatitis due to other agent, unspecified contact dermatitis type; Melanocytic nevus of trunk; Inflamed seborrheic keratosis; Lentigo; Cummins angioma; Seborrheic keratosis; Actinic skin damage; Subungual hematoma of toe, unspecified laterality, initial encounter 12/13/2024 Refill [facility] [address] [phone] Piper Horn MD Medication Refill from Last 3 Months Immunizations Immunization Administration [...] Description 06/21/2025 8:30 AM EDT Office Visit [facility] [address] [place] [id number] Piper Horn MD [address] [place] [phone] [email or web address] 01/18/2026 8:00 AM EST Office Visit [facility] [address] [place] [phone] Piper Horn MD [address] [place] [phone] [email or web address] Health Maintenance Due Date Last Done Comments LIPID PANEL 1950 DEPRESSION SCREENING 1962 SMOKING Hx and SMOKELESS TOBACCO SCREENING 05/30/1963 MAMMOGRAM 1990 COLOGUARD 05/30/1995 COLONOSCOPY 05/30/1995 COLORECTAL CANCER SCREENING 05/30/1995 FIT TEST 05/30/1995 FOBT 05/30/1995 SIGMOIDOSCOPY 05/30/1995 VIRTUAL COLONOSCOPY 05/30/1995 OSTEOPOROSIS SCREENING INITIAL (ONE-TIME) 05/30/2015 INFLUENZA VACCINE (#1) 2024 , 12/29/2022, 11/16/2021, Additional history exists COVID-19 VACCINE ( season) 2024 10/20/2023, 03/09/2023, 05/31/2022, Additional history exists RSV VACCINE (1 - 1-dose 75+ series) 2025 Adult Td,Tdap Booster 10/17/2032 10/17/2022 HEPATITIS C SCREENING Completed 01/13/2020, 020 PNEUMOCOCCAL VACCINES (50+ years) Completed 09/03/2021, 05/02/2021, [...] Procedure Name Priority Date/Time Associated Diagnosis Comments DERMATOPATHOLOGY Routine 12/22/2024 9:51 AM EST Neoplasm of uncertain behavior of skin HEPATITIS C ANTIBODY, QUALITATIVE Routine 01/13/2020 4:04 PM EST Pruritus from Last 3 Months or Most Recently Relevant to Health Maintenance Results * Dermatopathology (12/22/2024 9:51 AM EST) Final Pathologic Diagnosis A. 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 Note: SOX-10 immunohistochemistry supports the above diagnosis. Multiple levels examined. Case reviewed at Dermatopathology Division Staff Conference. 12:28 PM EST [facility] at 1228 EST Additional Pathologists Konstantin Armenta MD - Resident Pathologist 12:28 PM EST [facility] Clinical History A: Atypical pigmented lesion 12:28 PM EST [facility] Gross Description A. SKIN; LEFT POSTERIOR THIGH: Name: Guera Farr; ; and : 1950 Collection/Order Information: Skin ; Skin ; ''left posterior thigh'' ''Shave Biopsy''; ''Atypical pigmented lesion''; Specimen Label: matches the above (Confirmed by: Dana Henson) The specimen consists of a lee-white skin shave (0.9 x 1.0 x <0.1 cm). The epithelial surface displays a lee-white slightly elevated, variegated granulated crusted lesion (0.7 x 0.5 cm), abutting the closest radial margin. The specimen is inked and serially sectioned, and the specimen is submitted entirely. The cassette ozuna is as follows: A1-A2: 2 fragments each. 5 12:28 PM EST [facility] Grossed By Dana Henson 5 12:28 PM EST [facility] Result Priority Level Routine 5 12:28 PM EST [facility] Disclaimer By their signature above, the pathologist listed as making the Final Diagnosis certifies that they have personally reviewed the case and confirmed the diagnosis. All slides and stains were of sufficient quality to establish the diagnosis, unless otherwise stated. Due to loss of elastic tension and/or tissue shrinkage in formalin, the clinical sizes of tissue specimens may be larger than those provided in this report. 5 12:28 PM EST [facility] Skin (Skin) 12/22/2024 9:51 AM EST 12/22/2024 6:43 PM EST Piper Horn MD LAB PATHOLOGY ORDERABLES Fi nal Result Performing Organization Address City/[facility]/ZIP Co de Phone Number [facility] * Hepatitis C antibody, qualitative (01/13/2020 4:04 PM EST) HCV Nonreactive Nonreactive [facility] 01/13/2020 4:04 PM EST 01/13/2020 4:12 PM EST Leticia Johnson MD LAB BLOOD BKR ORDERABLES Fin al Result [facility] [address] [place] [phone] from Last 3 Months or Most Recently Relevant to Health Maintenance Insurance MEDICARE PART A & B [facility] MEDICARE PREFERRED SUPPLEMENT MEDICARE PART A & B [facility] MEDICARE PREFERRED SUPPLEMENT MEDICARE PART A & B [facility] MEDICARE PREFERRED SUPPLEMENT MEDICARE PART A & B [facility] MEDICARE PREFERRED SUPPLEMENT MEDICARE PART A & B [place] MEDICARE PREFERRED SUPPLEMENT MEDICARE PART A & B [facility] MEDICARE PREFERRED SUPPLEMENT MEDICARE PART A & B [facility] MEDICARE PREFERRED SUPPLEMENT MEDICARE PART A & B [place] MEDICARE PREFERRED SUPPLEMENT MEDICARE PART A & B [facility] MEDICARE PREFERRED SUPPLEMENT Care Teams Certified Drug Counselor Relationship Specialty Start Date End Date Ambreen Foster MD [address] [place] [address] PCP - General Internal Medicine 06/23/17 Additional Source Comments The information contained in this document represents components of the legal health record. It is not the complete legal health record.[facility]
[2025-01-31 14:37] LABS: Folate 13.6 ng/mL (> or = 4.0); Vitamin B12 666 pg/mL (200-900)
== END 2025-01-31 11:24 | disposition home or self-care (01) ==
LOC: HO.LAB 11:23
PROVIDERS: PCP Internal Medicine; Visit Provider Internal Medicine
DX: I77.71 Dissection of carotid artery (principal); R39.9 Unspecified symptoms and signs involving the genitourinary system; E78.00 Pure hypercholesterolemia, unspecified; Z13.1 Encounter for screening for diabetes mellitus; Z13.21 Encounter for screening for nutritional disorder
CPT/HCPCS: 36415; 80053; 80061; 81003; 82306; 82607; 82746; 83036; 83735; 84439; 84443; 85025; 85652; 86140

== ENCOUNTER 2025-02-01 14:05 | Outpatient (AMB) | payer MEDICARE, SELFPAY ==
[2025-02-01 14:19] VITALS: BP 120/76; PULSE 86; O2SAT 96; BMI 31.2
--- NOTE | 2025-02-01 14:19 | A.OFFPC_ITS ---
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: No Accompanied by: Self / Same As Patient Allergies cortisone Allergy (Intermediate, Verified 02/01/25 14:19) facial flushing/ confusion gluten Allergy (Intermediate, Verified 02/01/25 14:19) Gastrointestinal Upset atorvastatin Adverse Reaction (Intermediate, Verified 02/01/25 14:19) muscle ache rosuvastatin Adverse Reaction (Intermediate, Verified 02/01/25 14:19) myalgia Medication List - Last Reconciled 02/01/25 by Ambreen Foster MD acetaminophen (Tylenol) 325 mg PO QID PRN aspirin 81 mg PO DAILY 90 days betamethasone, augmented 0.05 % 1 appl topical DAILY blood pressure monitor (Blood Pressure Kit) As directed dupilumab (Dupixent) 200 mg subcut Q2W famotidine (Pepcid) 20 mg PO BEDTIME PRN [fish oil PO] [K2 D3 PO] multivitamin 1 tab PO DAILY pantoprazole 40 mg PO DAILY tacrolimus 0.1% topical tirzepatide (weight loss) (Zepbound) 2.5 mg (0.5 mL) subcut QWEEK Tobacco use date assessed: 02/01/25 Fall risk assessment: No Falls in past year Last assessed Fall Risk: 02/01/25 Dental Screening Dental Screen Date: 02/01/25 Did you have a dental visit in the last 12 months?: Yes Did you have a dental problem in the last 6 months where you did not have access to dental care?: No Was dental information given to patient?: Patient has dentist HPI HTN, cholesterol HPI Details allergic to fragrance, red wine HPI Comments History of Present Illness Details History of Present Illness The patient is a 74-year-old obese female presenting for a follow-up on chronic conditions. Her medical history is significant for coronary artery disease, gastroesophageal reflux disease (GERD), psoriasis, celiac disease, and impaired glucose tolerance. She was diagnosed with osteopenia following a bone density scan in October 2022. For weight management, the patient started a GLP-1 agonist two months ago and has since lost 17 pounds. She is currently on a 5 mg dose and reports experiencing headaches the day after the injection, but denies nausea. Regarding her hypercholesterolemia, recent lab work showed an LDL of 163 mg/dL. The patient was previously on Rosuvastatin 5 mg but stopped the medication, believing her improved diet with GLP-1 therapy would be sufficient. The patient has a history of a nontoxic multinodular goiter, with a recent thyroid ultrasound in August showing a stable 1.6 cm right thyroid nodule with no changes from prior imaging. A needle biopsy was performed in 2023, and a past endocrinology consultation was unremarkable. Her dermatologic history includes psoriasis and eczema, managed with Dupixent for four years, tacrolimus ointment, and a steroid cream for breakthroughs. Recent allergy patch testing revealed strong reactions to fragrances and other substances, prompting a change in her personal care products. Musculoskeletal complaints include chronic hip pain attributed to a taut tendon, for which she is currently in her fifth or sixth week of physical therapy. She also has severely limited mobility in her right arm, suspecting a torn rotator cuff. For several years, she has experienced bilateral thumb numbness and a tingling, burning sensation, which has been confirmed not to be carpal tunnel or a cervical nerve issue via prior nerve conduction studies. 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 Health Maintenance A referral for a colonoscopy will be placed, as the patient is due next year. The patient declined an influenza vaccine today. Preventative measures for flu season, such as wearing a mask in crowded areas, were recommended. Social History - Diet: The patient is actively trying t o improve her diet, noting that dairy aggravates her reflux. - She primarily drinks water and coffee, consuming about two mugs of coffee per day. - Weight Management: The patient is on a GLP-1 agonist for weight loss and has lost 17 pounds since June. 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 Results - Laboratory Studies (recent): - CBC: Normal. - CMP: Sodium, potassium, kidney functio n, and liver function are normal. - Hemoglobin A1c: Normal. - Lipid Panel: LDL is 163 mg/dL. - TSH: Normal. - Vitamin B12, vitamin D, folic acid, an d magnesium: All within normal limits. - Urinalysis: Negative. - Imaging Studies: - Thyroid Ultrasound (August): Showed a mu ltinodular thyroid gland with a 1.6 cm right thyroid nodule, stable compared to prior studies. - Bone Density Scan (October 2022): Re vealed osteopenia. [facility] Medical History (Updated 02/01/25 @ 15:13 by Ambreen Foster MD) Cough Cough Carotid artery dissection Breast cancer screening by mammogram COVID-19 vaccine series completed Umbilical hernia GERD (gastroesophageal reflux disease) Overweight (BMI 25.0-29.9) Psoriasis Claustrophobia Osteoporosis Celiac disease Obesity (BMI 30-39.9) Coronary artery disease Hypercholesterolemia Surgical History Hx of hernia repair H/O esophagogastroduodenoscopy H/O colonoscopy History of dental problems History of cataract surgery History of section History of shoulder surgery H/O lateral meniscus repair of right knee Total knee replacement status History of surgery History of ankle surgery Family History Father Emphysema lung Mother Emphysema lung Social History Household Members: Spouse Household Members Other:: - Housing: House Alcohol intake: never Patient Tobacco Use Status: Former Tobacco user Tobacco use type: Cigarette Years Smoked: 1976 stopped e-Cigarette/Vaping Use: Never Used Second Hand Smoke Exposure: No service: No Current occupational status: retired Cognitive needs: No Hearing needs: No Vision needs: Yes (reading glasses) Questionnaire PHQ-9 Over the last 2 weeks, how often have you been bothered by any of the following problems? 1. Little interest or pleasure in doing things: not at all 2. Feeling down, depressed, or hopeless: not at all 3. Trouble falling or staying asleep, or sleeping too much: not at all 4. Feeling tired or having little energy: not at all 5. Poor appetite or overeating: not at all 6. Feeling bad about yourself - or that you are a failure or have let yourself or your family down: not at all 7. Trouble concentrating on things, such as reading the newspaper or watching television: not at all 8. Moving or speaking so slowly that other people could have noticed. Or the opposite - being so fidgety or restless that you have been moving around a lot more than usual: not at all 9. Thoughts that you would be better off or of hurting yourself in some way: not at all Total score: 0 Source: Developed by Drs. Clayton Conde, Kat Grossman, Sanjay Grant and colleagues, with an educational raysa from [employer]. Thrive Questionnaire Date Thrive assessed: 02/01/25 I am a: Patient What is your living situation today?: I choose not to answer this question Within the past 12 months, did the food you bought not last and you didn't have the money to get more?: I choose not to answer this question Within the past 12 months, did you worry whether your food would run out before you got money to buy more?: I choose not to answer this question Do you have trouble paying for medicines?: I choose not to answer this question Do you have trouble getting transportation to medical appointments?: I choose no t to answer this question Do you have trouble paying your heating and electricity bill?: I choose not to answer this question Do you have trouble taking care of your child, family member or friend?: I choose not to answer this question Do you have trouble with day-to-day activities such as bathing, preparing meals, shopping, managing finances, etc.?: I choose not to answer this question Are you currently unemployed and looking for a job?: I choose not to answer this question Are you interested in more education?: I choose not to answer this question Please select the resources that you would like help with: None Currently or been in a relationship where the following occur: I choose not to answer THRIVE Score: 0 AUDIT C Alcohol Use Questionnaire (AUDIT-C) 1. How often do you have a drink containing alcohol?: Never 3. How often do you have six or more drinks on one occasion?: Never Total Score: 0 FABIAN-7 AMB Questionnaire FABIAN-7 Date FABIAN - 7 assessed: 02/01/25 Feeling nervous, anxious, or on edge: 0 = Not at all Not being able to stop or control worryin = Not at all Worrying too much about different things: 0 = Not at all Trouble relaxin = Not at all Being so restless that it is hard to sit still: 0 = Not at all Becoming easily annoyed or irritable: 0 = Not at all Feeling afraid as if something awful might happen: 0 = Not at all Total FABIAN-7 score (0-4 normal; 5-9 mild; 10-14 moderate; 15-21 severe): 0 Source: Developed by Drs. Clayton Conde, Kat Grossman, Sanjay Grant and colleagues, with an educational raysa from [employer]. Review of Systems Narrative Review of Systems - Constitutional: Reports a 17-pound weight loss. - Neurological: Reports intermittent headaches after GLP-1 agonist injections. - Reports constant tingling, numbness, and occasional burning sensation in both thumbs. - Eyes: Reports recurrent growths on the inner eyelids that scratch the eye. - Gastrointestinal: Reports GERD symptoms aggravated by dairy. - Reports normal bowel movements. - Genitourinary: Denies nocturia. - Reports a recent history of a urinary tract infection. - Musculoskeletal: Reports hip pain, managed with physical therapy. - Reports severely limited mobility in her right arm. - Reports foot pain after standing in the cold. - Dermatologic/Allergies: Reports eczema and psoriasis. - Reports known allergies to fragrances and certain foods. Physical exam (Primary Care) Vital Signs: Last Vital Signs Pulse 86 02/01/25 14:19 BP 120/76 02/01/25 14:19 Pulse Ox 96 02/01/25 14:19 Oxygen Delivery Method Room Air 02/01/25 14:19 BMI result Body Mass Index 31.2 Tobacco/Smoking Status: Tobacco use Status Tobacco use date assessed 02/01/25 02/01/25 14:35 Patient Tobacco Use Status Former Tobacco user 02/01/25 14:35 Tobacco use type Cigarette 02/01/25 14:35 e-Cigarette/Vaping Use Never Used 02/01/25 14:35 PHQ-9: PHQ-9 Score PHQ-9: Total score 0 02/01/25 14:50 Thrive Assessment: Date of Thrive Assessment Date Thrive assessed 02/01/25 02/01/25 14:35 Currently or been in a relationship where the following occur: I choose not to answer Narrative Physical Exam Const General: alert; No acute distress Eyes Conjunctivae: conjunctivae normal Resp Auscultation: clear to auscultation bilaterally Cardio Rate: regular rate Rhythm: regular rhythm GI Inspection: Yes normal to inspection Extrem General: Yes normal to inspection and No edema Coding Level of Care Code Est Pt Level 4 (83955) Add On Problem Visit Only Diagnoses Impaired fasting blood sugar R73.01 Thyroid nodule E04.1 Hypercholesterolemia E78.00 Osteopenia M85.80 Obesity (BMI 30-39.9) E66.9 Gastroesophageal reflux disease without esophagitis K21.9 Esophagitis presence: without esophagitis Tubular adenoma of colon D12.6 Assessment & Plan Assessment & Plan (1) Impaired fasting blood sugar: Code(s): R73.01 - Impaired fasting glucose Category: Medical Plan: Decrease the amount of carbohydrate intake, pasta, bread, rice and potatoes are all sugar and that is aside from all the sweet stuff, remember that fruits are good but they are Sweet also. (2) Thyroid nodule: Comment: February, biopsy 07/2023 follicular nodular disease right thyroid Code(s): E04.1 - Nontoxic single thyroid nodule Category: Medical Plan: Patient had recent thyroid ultrasound showing no changes but does have a right thyroid nodule that is 1.6 cm (3) Hypercholesterolemia: Code(s): E78.00 - Pure hypercholesterolemia, unspecified Category: Medical Plan: Avoid fried foods, chicken skin, eggs, butter margarine, pastries and meat. Be it pork or beef they have a lot of cholesterol LDL goal of less than 70 patient is on no medication right now and triglyceride of less than 150 (4) Osteopenia: Comment: October 2022 Code(s): M85.80 - Other specified disorders of bone density and structure, unspecified site Category: Medical Plan: Discussed about calcium and vitamin-D and repeat bone density (5) Obesity (BMI 30-39.9): Code(s): E66.9 - Obesity, unspecified Category: Medical Plan: Diet and exercise noted weight loss (6) GERD (gastroesophageal reflux disease): Comment: Pantoprazole 40 mg daily may try to reduce dose in the future if symptoms are completely resolved. Reinforced importance of continuing medication and consistency to avoid breakthrough Avoid culprits-EGD Code(s): K21.9 - Gastro-esophageal reflux disease without esophagitis Category: Medical Qualifiers: Esophagitis presence: without esophagitis Qualified Code(s): K21.9 - Gastro-esophageal reflux disease without esophagitis Plan: Avoid the foods that causes that usually spicy foods, tomato products, juices, coffee, soda and foods that your sensitive to. After eating do not lie down, allow 3-4 hours before in lie down. And keep the head of bed above 30 degrees to avoid the acid from going up. (7) Tubular adenoma of colon: Code(s): D12.6 - Benign neoplasm of colon, unspecified Category: Medical Plan Plan Patient was informed and verbally consented to the use of an ambient scribe for clinic note documentation during this visit. 1. Hypercholesterolemia The patient's recent LDL level was significantly elevated at 163 mg/dL. Despite her dietary improvements, her cholesterol remains high, which is likely attributable to genetics. The plan is to restart rosuvastatin 5 mg daily. A follow-up lipid panel is ordered for 3 months from now. 2. Obesity The patient has achieved a 17-pound weight loss since June with the use of a GLP- 1 agonist. She is currently on the 5 mg dose and reports headaches as a side effect. She will continue the current dose and will postpone a potential dose increase to 7.5 mg until after the holidays, depending on her weight loss progress and tolerance. 3. Nontoxic Multinodular Goiter A recent thyroid ultrasound demonstrated stability of the multinodular gland and the 1.6 cm right-sided nodule. Given the stability, a past benign biopsy, and an unremarkable endocrinology evaluation, the plan is to continue annual ultrasound monitoring. 4. Osteopenia The patient was last screened in October 2022. The importance of calcium and vitamin D supplementation was discussed. A referral for a repeat bone density scan will be placed for this year. Discussion Notes I reviewed the patient's recent lab results, highlighting the significantly elevated LDL cholesterol of 163 mg/dL. I explained that despite her excellent efforts with diet and weight loss, this is likely due to genetics, and we agreed to restart rosuvastatin 5 mg. We discussed her continued success with the GLP-1 agonist for weight loss and her plan to remain on the current dose for now. We also discussed health maintenance, including the stability of her thyroid nodule which will continue to be monitored. I confirmed that referrals for a repeat bone density scan and a colonoscopy will be placed. The patient declined an influenza vaccine today, and I advised her to take precautions such as masking in crowded places during flu season. The patient also expressed significant frustration with front office communication and care coordination, which I acknowledged. Patient Instructions - Restart your cholesterol medication, rosuvastatin 5 mg, once daily. - You will need a follow-up blood test in 3 months to recheck your cholesterol. - Continue your current dose of the weekly injection for weight loss. - Continue to supplement with calcium and vitamin D for your bone health. - Our office will provide you with referrals for a bone density scan and a colonoscopy. - Continue with your physical therapy for your hip pain. - As it is flu season, consider wearing a mask when you are in crowded places. Orders: Orders Hemoglobin A1c Today E78.00 - Pure hypercholesterolemia, unspecified Lipid Panel 3 Months E78.00 - Pure hypercholesterolemia, unspecified Comprehensive Met. Panel 3 Months E78.00 - Pure hypercholesterolemia, unspecified XR DEXA axial skeleton Today D12.6 - Benign neoplasm of colon, unspecified, M81.0 - Age-related osteoporosis without current pathological fracture Referrals Gastroenterology Referral D12.6 - Benign neoplasm of colon, unspecified Medications: Refilled rosuvastatin 5 mg PO DAILY 90 tabs 2RF E78.00 - Pure hypercholesterolemia, unspecified
--- OUTSIDE RECORDS SUMMARY | 2025-02-01 15:21 | XMS_ITS | Encounter Summary ---
Author Organization [facility] Address [address] [place] [address] Phone Care Team Providers Care Materials Planning Manager Name Role Phone Carmen Delacruz MD Unavailable Unav ailable KanAlex ardon MD Primary Care Provider [phone] Ambreen Foster MD Primary Care Provider [phone] Encounter Details Date Type Department Care Team (Late st Contact Info) Description 06/05/2017 Transcribe [facility] for Outpatient Care, Radio Flouroscopy [address] [place] [address] Perez Avery Jp, MD [address] [facility] [id number] [place] [address] [email or web address] Social History Tobacco Use Types Packs/Day Years [...] Visit [facility] [address] [address] Piper Horn MD [address] [place] [address] [email or web address] 01/18/2026 8:00 AM EST Office Visit [facility] [address] [facility] 1st [place] [address] Piper Horn MD [address] [place] [address] [email or web address] documented as of this encounter Visit Diagnoses Not on filedocumented in this encounter Care Teams Materials Planning Manager Relationship Specialty Start Date End Date Alex Rubin MD [address] [place] [address] PCP - General Internal Medicine 10/03/14 06/22/17 Ambreen Foster MD [address] [place] [address] Drive [address] [place] [id number] PCP - General Internal Medicine 06/23/17 Carmen Delacruz MD Historical LMR Provider 06/25/14 02/17/21 documented as of this encounter Additional Source Comments The information contained in this document represents components of the legal health record. It is not the complete legal health record.[facility]
--- OUTSIDE RECORDS SUMMARY | 2025-02-01 15:21 | XMS_ITS | Clinical Summary ---
Author Organization [facility] Address [address] [place] [id number] Care Team Providers Care Fourth Hand Name Role Phone Unavailable Primary Care Provider [...]
--- OUTSIDE RECORDS SUMMARY | 2025-02-01 15:21 | XMS_ITS | Encounter Summary ---
Author Organization [facility] Address [address] [place] [address] Phone Care Team Providers Care Brand Executive Name Role Phone Carmen Delacruz MD Unavailable Unav ailable Alex Rubin MD Primary Care Provider [phone] Ambreen Foster MD Primary Care Provider [phone] Encounter Details Date Type Department Care Team (Late st Contact Info) Description 05/05/2017 Procedure Pass [facility] [place] [address] [facility], [address]th [place] [address] Social History Tobacco Use Types Packs/Day Years [...] Office Visit [facility] [address] [place] [address] Piper Horn MD [address] [place] [id number] [email or web address] 01/18/2026 8:00 AM EST Office Visit [facility] [address] [address] Piper Horn MD [address] [place] [address] [email or web address] documented as of this encounter Visit Diagnoses Not on filedocumented in this encounter Care Teams Brand Executive Relationship Specialty Start Date End Date Alex Rubin MD [address] [place] [address] PCP - General Internal Medicine 10/03/14 06/22/17 Ambreen Foster MD [address] [place] [address] Drive [address] [place] [id number] PCP - General Internal Medicine 06/23/17 Carmen Delacruz MD Historical LMR Provider 06/25/14 02/17/21 documented as of this encounter Additional Source Comments The information contained in this document represents components of the legal health record. It is not the complete legal health record.[facility]
--- OUTSIDE RECORDS SUMMARY | 2025-02-01 15:21 | XMS_ITS | Clinical Summary ---
Author Organization [facility] Prior to 07/10/[address] [place] [address] Care Team Providers Care Mill Controller Name Role Phone Po, Ambreen Sheikh MD Primary Care Provider [phone] Allergies Active Allergy Reactions Criticality Noted Date [...] Dispense: 100 Tablet(s); Status: Active; Source: [facility] P.ACrescencio-CCrescencio; Date: 04/21/2014 0 04/21/2014 Active [...] age to complete this topic Care Teams Mill Controller Relationship Specialty Start Date End Date Po, Ambreen Sheikh MD [address] [place] [address] [address] [facility] ANA LUISA Sánchez [id number] PCP - General Internal Medicine 12/31/21
--- OUTSIDE RECORDS SUMMARY | 2025-02-01 15:21 | XMS_ITS | Clinical Summary ---
Author Organization [facility] Address [email or web address] [place] [address] Phone Care Team Providers Care Travel Writer Name Role Phone Po, Ambreen Villarreal MD Primary Care Provider [phone] Allergies Active Allergy Reactions Criticality Noted Date [...] Type Department Care Team Description 01/12/2025 Telephone [facility] [address] [place] [id number] Thao Nieto [facility] Assessment 01/12/2025 Documentation [facility] [address] [place] [id number] Malena Villarreal 12/29/2024 Refill [facility] [address] [address] Kaylah Oreilly RN Results 12/22/2024 9:15 AM EST Office Visit [facility] [address] [address] Piper Horn MD Neoplasm of uncertain behavior of skin (Primary Dx); Contact dermatitis due to other agent, unspecified contact dermatitis type; Melanocytic nevus of trunk; Inflamed seborrheic keratosis; Lentigo; Cummins angioma; Seborrheic keratosis; Actinic skin damage; Subungual hematoma of toe, unspecified laterality, initial encounter 12/13/2024 Refill [facility] [address] [address] Piper Horn MD Medication Refill from Last [...] Description 06/21/2025 8:30 AM EDT Office Visit [facility] [address] [place] [phone] Piper Horn MD [address] [place] [id number] [email or web address] 01/18/2026 8:00 AM EST Office Visit [facility] [address] [place] [phone] Piper Horn MD [address] [place] [phone] [email or web address] Maintenance Due Date Last Done Comments [...] Dermatopathology Division Staff Conference. 12:28 PM EST [facility] at 1228 EST Additional Pathologists Konstantin Armenta MD - Resident Pathologist 12:28 PM EST [facility] Clinical History A: Atypical pigmented lesion 12:28 PM EST [facility] Gross Description A. SKIN; LEFT POSTERIOR [...] 2 fragments each. 5 12:28 PM EST [facility] Grossed By Dana Henson 5 12:28 PM EST [facility] Result Priority Level Routine 5 12:28 PM EST [facility] Disclaimer By their signature above, the [...] in this report. 5 12:28 PM EST [facility] Skin (Skin) 12/22/2024 9:51 AM EST 12/22/2024 6:43 PM EST Piper Horn MD LAB PATHOLOGY ORDERABLES Fi nal Result Performing Organization Address City/[facility]/ZIP Co de Phone Number [facility] * Hepatitis C antibody, qualitative (01/13/2020 4:04 PM EST) HCV Nonreactive Nonreactive [facility] 01/13/2020 4:04 PM EST 01/13/2020 4:12 PM EST Leticia Johnson MD LAB BLOOD BKR ORDERABLES Fin al Result [facility] [address] [place] [id number] from Last 3 Months or Most Recently Relevant to Health Maintenance Insurance MEDICARE PART A & B [facility] MEDICARE PREFERRED SUPPLEMENT MEDICARE PART A & B [facility] MEDICARE PREFERRED SUPPLEMENT MEDICARE PART A & B [place] PREFERRED SUPPLEMENT MEDICARE PART A & B [facility] MEDICARE PREFERRED SUPPLEMENT MEDICARE PART A & B [place] MEDICARE PREFERRED SUPPLEMENT MEDICARE PART A & B [facility] MEDICARE PREFERRED SUPPLEMENT MEDICARE PART A & B [facility] MEDICARE PREFERRED SUPPLEMENT MEDICARE PART A & B [place] PREFERRED SUPPLEMENT MEDICARE PART A & B [facility] MEDICARE PREFERRED SUPPLEMENT Care Teams Travel Writer Relationship Specialty Start Date End Date Ambreen Foster MD [address] [place] [address] PCP - General Internal Medicine 06/23/17 Additional Source Comments The information contained in this document represents components of the legal health record. It is not the complete legal health record.[facility]
== END 2025-02-01 15:19 | disposition home or self-care (01) ==
LOC: HO.HMCH 14:05
PROVIDERS: PCP Internal Medicine; Visit Provider Internal Medicine
DX: R73.01 Impaired fasting glucose (principal); E04.1 Nontoxic single thyroid nodule; E78.00 Pure hypercholesterolemia, unspecified; M85.80 Other specified disorders of bone density and structure, unspecified site; E66.9 Obesity, unspecified; K21.9 Gastro-esophageal reflux disease without esophagitis; D12.6 Benign neoplasm of colon, unspecified

== ENCOUNTER → 2025-02-01 14:05 | Outpatient (BNVA) | payer MEDICARE, SELFPAY | PROVIDERS: PCP Internal Medicine; Visit Provider Internal Medicine | DX: I10 Essential (primary) hypertension (principal); R73.01 Impaired fasting glucose; E04.1 Nontoxic single thyroid nodule; E78.00 Pure hypercholesterolemia, unspecified; E66.9 Obesity, unspecified; K21.9 Gastro-esophageal reflux disease without esophagitis; D12.6 Benign neoplasm of colon, unspecified; Z13.31 Encounter for screening for depression; Z13.39 Encounter for screening examination for other mental health and behavioral disorders; Z79.899 Other long term (current) drug therapy | CPT/HCPCS: 96127; 99212 ==